=== PATIENT | male | born 1930 | race Caucasian/White ===

== ENCOUNTER 2017-04-11 05:45 | Inpatient (IN) | payer MEDICARE, OTHER ==
[2017-04-11] MEDS ORDERED: ASPIRIN 81 MG CHEW PO STA (05:49)
[2017-04-11] MEDS ORDERED: NITROGLYCERIN OINT 1 INCH/GM PACKET TOPICAL STA (05:49)
--- NOTE | 2017-04-11 05:54 | ED ---
General Adult HPI - General Stated complaint: Chest pain Time Seen by Provider: 04/11/17 05:45 Source: RN notes reviewed - History of Present Illness Initial comments: This is an 86-year-old male who presents to the emergency department with past medical history significant for coronary artery disease and stenting approximately 9 years ago. Patient also has a pacemaker. Patient states he woke up approximately one half hour ago with sharp right upper arm pain. Patient took 3 nitro sprays and the pain immediately relieved. Patient denies any chest pain difficulty breathing or shortness of breath. Patient denies any diaphoresis patient denies any abdominal pain patient denies nausea vomiting diarrhea. Patient denies being lightheaded dizzy. Patient denies any headache patient denies numbness weakness. Patient states he is currently asymptomatic. Patient denies any symptoms prior to going to bed last night. Patient denies being sick at all recently. Patient denies any recent fever chills or cough. - Related Data Home Medications Medication Instructions Recorded Confirmed ALPRAZolam [Xanax] 0.5 mg PO TID PRN 08/08/14 04/11/17 Tamsulosin HCl [Flomax] 0.4 mg PO DAILY 08/08/14 04/11/17 Atenolol [Tenormin] 25 mg PO DAILY 04/13/15 04/11/17 Pravastatin Sodium [Pravachol] 20 mg PO DAILY 04/13/15 04/11/17 Apixaban [Eliquis] 5 mg PO BID 07/23/16 04/11/17 Allergies Allergy/AdvReac Type Severity Reaction Status Date / Time Sulfa (Sulfonamide Allergy Unknown Verified 04/11/17 06:07 Antibiotics) Review of Systems ROS Statement: Those systems with pertinent positive or pertinent negative responses have been documented in the HPI. ROS Other: All systems not noted in ROS Statement are negative. Past Medical History Past Medical History: Coronary Artery Disease (CAD), Heart Failure, CVA/TIA, Hyperlipidemia, Hypertension, Musculoskeletal Disorder, Osteoarthritis (OA), Prostate Disorder Additional Past Medical History / Comment(s): BPH. TIA 08/2014. GOUT. 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 History of Any Multi-Drug Resistant Organisms: None Reported Past Surgical History: Heart Catheterization, Pacemaker Additional Past Surgical History / Comment(s): PTCA. [facility]. Past Anesthesia/Blood Transfusion Reactions: No Reported Reaction Type of Cardiac Device: Permanent Pacemaker Device Placement Date:: 2007 Past Psychological History: Anxiety, Panic Disorder Additional Psychological History / Comment(s): TAKES RX AT HS, OCC DURING DAY. Smoking Status: Never smoker Past Alcohol Use History: Occasional Past Drug Use History: None Reported - Past Family History Brother(s) Family Medical History: Cancer Additional Family Medical History / Comment(s): Clayton Delacruz General Exam - General Exam Comments Initial Comments: GENERAL: Patient is well-developed and well-nourished. Patient is nontoxic and well- hydrated and is in no acute distress. ENT: Neck is soft and supple. No significant lymphadenopathy is noted. Oropharynx is clear. Moist mucous membranes. Neck has full range of motion without eliciting any pain. EYES: The sclera were anicteric and conjunctiva were pink and moist. Extraocular movements were intact and pupils were equal round and reactive to light. Eyelids were unremarkable. PULMONARY: Unlabored respirations. Good breath sounds bilaterally. No audible rales rhonchi or wheezing was noted. CARDIOVASCULAR: There is a regular rate and rhythm without any murmurs gallops or rubs. Occasional extrasystole ABDOMEN: Soft and nontender with normal bowel sounds. No palpable organomegaly was noted. There is no palpable pulsatile mass. SKIN: Skin is clear with no lesions or rashes and otherwise unremarkable. NEUROLOGIC: Patient is alert and oriented x3. Cranial nerves II through XII are grossly intact. Motor and sensory are also intact. Normal speech, volume and content. Symmetrical smile. MUSCULOSKELETAL Patient's full range of motion of all 4 extremities LYMPHATICS: No significant lymphadenopathy is noted PSYCHIATRIC: Normal psychiatric evaluation. Normal interpersonal interactions appears functionally intact in deals appropriately with others. No signs of depression. No signs of anxiety. Course Vital Signs 04/11/17 05:55 Temperature 97 F L Pulse Rate 63 Respiratory 18 Rate Blood Pressure 130/77 O2 Sat by Pulse 97 Oximetry Medical Decision Making - Medical Decision Making EKG shows a paced rhythm at 73 bpm QRS is 192 QT interval is 496 QTC is QTC is 546. Patient's EKG does show occasional PVCs. Chest x-ray shows no acute normalities. Patient has unstable angina however patient does not need any anticoagulation because he does not have. I spoke to Dr. Kearney he accepted the patient I wrote admitting orders I consult to cardiology. - Lab Data Result diagrams: 04/11/17 05:50 04/11/17 05:50 Lab Results 04/11/17 04/11/17 04/11/17 Range/Units 05:50 05:50 05:50 WBC 5.3 (3.8-10.6) k/uL RBC 4.44 (4.30-5.90) m/uL Hgb 14.4 (13.0-17.5) gm/dL Hct 40.7 (39.0-53.0) % MCV 91.8 (80.0-100.0) fL MCH 32.5 (25.0-35.0) pg MCHC 35.4 (31.0-37.0) g/dL RDW 13.6 (11.5-15.5) % Plt Count 104 L (150-450) k/uL Neutrophils % 52 % Lymphocytes % 34 % Monocytes % 6 % Eosinophils % 5 % Basophils % 1 % Neutrophils # 2.8 (1.3-7.7) k/uL Lymphocytes # 1.8 (1.0-4.8) k/uL Monocytes # 0.3 (0-1.0) k/uL Eosinophils # 0.3 (0-0.7) k/uL Basophils # 0.0 (0-0.2) k/uL PT (9.0-12.0) sec INR (<1.1) APTT (22.0-30.0) sec Sodium 140 (137-145) mmol/L Potassium 4.2 (3.5-5.1) mmol/L Chloride 111 H (98-107) mmol/L Carbon Dioxide 21 L (22-30) mmol/L Anion Gap 8 mmol/L BUN 29 H (9-20) mg/dL Creatinine 1.10 (0.66-1.25) mg/dL Est GFR (MDRD) Af Amer >60 (>60 ml/min/1.73 sqM) Est GFR (MDRD) Non-Af >60 (>60 ml/min/1.73 sqM) Glucose 78 (74-99) mg/dL Calcium 7.8 L (8.4-10.2) mg/dL Magnesium 1.9 (1.6-2.3) mg/dL Total Bilirubin 1.0 (0.2-1.3) mg/dL AST 33 (17-59) U/L ALT 33 (21-72) U/L Alkaline Phosphatase 49 (38-126) U/L Total Creatine Kinase 58 (55-170) U/L CK-MB (CK-2) 1.5 (0.0-2.4) ng/mL CK-MB (CK-2) Rel Index 2.6 Troponin I 0.099 H* (0.000-0.034) ng/mL Total Protein 5.7 L (6.3-8.2) g/dL Albumin 3.1 L (3.5-5.0) g/dL 04/11/17 Range/Units 05:50 WBC (3.8-10.6) k/uL RBC (4.30-5.90) m/uL Hgb (13.0-17.5) gm/dL Hct (39.0-53.0) % MCV (80.0-100.0) fL MCH (25.0-35.0) pg MCHC (31.0-37.0) g/dL RDW (11.5-15.5) % Plt Count (150-450) k/uL Neutrophils % % Lymphocytes % % Monocytes % % Eosinophils % % Basophils % % Neutrophils # (1.3-7.7) k/uL Lymphocytes # (1.0-4.8) k/uL Monocytes # (0-1.0) k/uL Eosinophils # (0-0.7) k/uL Basophils # (0-0.2) k/uL PT 12.5 H (9.0-12.0) sec INR 1.3 (<1.1) APTT 24.8 (22.0-30.0) sec Sodium (137-145) mmol/L Potassium (3.5-5.1) mmol/L Chloride (98-107) mmol/L Carbon Dioxide (22-30) mmol/L Anion Gap mmol/L BUN (9-20) mg/dL Creatinine (0.66-1.25) mg/dL Est GFR (MDRD) Af Amer (>60 ml/min/1.73 sqM) Est GFR (MDRD) Non-Af (>60 ml/min/1.73 sqM) Glucose (74-99) mg/dL Calcium (8.4-10.2) mg/dL Magnesium (1.6-2.3) mg/dL Total Bilirubin (0.2-1.3) mg/dL AST (17-59) U/L ALT (21-72) U/L Alkaline Phosphatase (38-126) U/L Total Creatine Kinase (55-170) U/L CK-MB (CK-2) (0.0-2.4) ng/mL CK-MB (CK-2) Rel Index Troponin I (0.000-0.034) ng/mL Total Protein (6.3-8.2) g/dL Albumin (3.5-5.0) g/dL Disposition Clinical Impression: Unstable angina Disposition: ADMITTED IP TO THIS HOSP Referrals: James Herman DO [Primary Care Provider] - 1-2 days Time of Disposition: 06:57
[2017-04-11 06:11] LABS: Basophils % (A) 1 %; Eosinophils # (A) 0.3 k/uL (0-0.7); Eosinophils % (A) 5 %; HCT 40.7 % (39.0-53.0); HGB 14.4 gm/dL (13.0-17.5); Luc # (Auto) 0.13; Luc % (Auto) 3; Lymphocytes # (A) 1.8 k/uL (1.0-4.8); Lymphocytes % (A) 34 %; MCH 32.5 pg (25.0-35.0); MCHC 35.4 g/dL (31.0-37.0); MCV 91.8 fL (80.0-100.0); Mean Platelet Volume 8.8; Monocytes # (A) 0.3 k/uL (0-1.0); Monocytes % (A) 6 %; Neutrophils # (A) 2.8 k/uL (1.3-7.7); Neutrophils % (A) 52 %; RBC 4.44 m/uL (4.30-5.90); RDW 13.6 % (11.5-15.5); WBC 5.3 k/uL (3.8-10.6)
[2017-04-11 06:20] LABS: INR 1.3 (<1.1); Partial Thromboplastin Time 24.8 sec (22.0-30.0); Prothrombin Time 12.5 sec (9.0-12.0)
[2017-04-11 06:37] LABS: ALT 33 U/L (21-72); AST 33 U/L (17-59); Alkaline Phosphatase 49 U/L (38-126); Anion Gap 8 mmol/L; Blood Urea Nitrogen 29 mg/dL (9-20); Calcium 7.8 mg/dL (8.4-10.2); Carbon Dioxide 21 mmol/L (22-30); Chloride 111 mmol/L (98-107); Glucose 78 mg/dL (74-99); Magnesium 1.9 mg/dL (1.6-2.3); Non-African American GFR(MDRD) >60 (>60 ml/min/1.73 sqM); Potassium 4.2 mmol/L (3.5-5.1); Sodium 140 mmol/L (137-145); Total Protein 5.7 g/dL (6.3-8.2)
[2017-04-11 06:49] LABS: Creatine Kinase MB 1.5 ng/mL (0.0-2.4)
[2017-04-11 06:54] LABS: Troponin I 0.099 ng/mL (0.000-0.034)
--- NOTE | 2017-04-11 06:55 | XR ---
ADDENDUM - Added by Yosi Timmons M.D. on 04/11/2017 6:56 AM (-07:00) Correction: Bones/joints: Unremarkable except for multilevel spine degenerative changes. EXAM: XR Chest, 2 Views CLINICAL HISTORY: Reason: Chest Pain TECHNIQUE: Frontal and lateral views of the chest. COMPARISON: Chest radiography 08/08/14. FINDINGS: Lungs: Unremarkable. No consolidation. Pleural space: Unremarkable. No pneumothorax. Heart: Cardiomegaly. Mediastinum: Unremarkable. Bones/joints: Unremarkable. Vasculature: Atherosclerotic calcifications of the nonenlarged aortic arch. Mildly tortuous thoracic aorta. Tubes, lines and devices: Single lead pacer with intact wire. IMPRESSION: No acute cardiopulmonary disease.
[2017-04-11] MEDS ORDERED: NITROGLYCERIN SL TABS 0.4 MG TAB SUBLINGUAL PRN (06:57)
[2017-04-11] MEDS ORDERED: ALPRAZolam 0.5 MG TAB PO PRN (07:45)
[2017-04-11] MEDS ORDERED: APIXABAN 5 MG TAB PO SCH (09:00)
[2017-04-11] MEDS ORDERED: ENOXAPARIN 40 MG/0.4 ML SYRINGE SQ SCH (09:00)
[2017-04-11] MEDS ORDERED: PRAVASTATIN SODIUM 20 MG TAB PO SCH (09:00)
[2017-04-11 10:04] VITALS: BMI 25.8
[2017-04-11] MEDS: ATENOLOL 25 MG TAB PO SCH (10:07)
[2017-04-11] MEDS: TAMSULOSIN 0.4 MG CAP.ER.24H PO SCH (10:08)
[2017-04-11 12:22] LABS: Creatine Kinase MB 1.5 ng/mL (0.0-2.4)
[2017-04-11 12:27] LABS: Troponin I 0.11 ng/mL (0.000-0.034)
--- NOTE | 2017-04-11 17:28 | CONS ---
DATE OF CONSULTATION: Terry Browne is an 86-year-old elderly gentleman who is a patient of Dr. Ceci Almeida. He has history of CAD and about 15 to 18 years ago, according to the patient, he underwent a and PTCA. He did not have a stent placement. Since then he has done fairly well. He came into the hospital with an episode of what he describes as a chest discomfort. Apparently he woke up and had some pain in the left upper extremity and then had some pain in the right upper extremity. He took some nitro sprays and had some relief, felt concerned and came in. He has not had any recurrence of pain. He is resting comfortably in no diaphoresis. No nausea or vomiting. Initial troponin is mildly elevated. He is resting comfortably without symptoms. He also has a history of what seems to be paroxysmal atrial fibrillation, hypertension, and hypercholesterolemia. He takes Eliquis. He is status post permanent pacemaker for sick sinus syndrome and has underlying atrial fibrillation. At the time of my evaluation the patient is comfortable resting and denies any chest discomfort. PAST MEDICAL HISTORY: 1. CAD with previous history of angioplasty, details are unavailable. 2. History of sick sinus syndrome. 3. Paroxysmal atrial fibrillation, status post permanent pacemaker. 4. History of TIA in the past. 5. Hyperlipidemia. 6. Osteoarthritis. 7. Benign prostatic hypertrophy. Medications at home include: 1. Xanax p.r.n. 2. Flomax 0.4 mg daily. 3. Atenolol 25 mg daily. 4. Pravachol 20 mg daily. 5. Eliquis 5 mg b.i.d. ALLERGIES: SULFA. REVIEW OF SYSTEMS: Unremarkable other than above-mentioned facts. On examination, blood pressure is 118/70, pulse rate is 60 per minute, regular. HEENT: Unremarkable. Fundus was not examined by me. Neck is supple. There is JVD of 1 cm. No carotid bruit. Heart exam reveals S1, S2 with a short systolic murmur at the base. Lungs reveal diminished air entry. ABDOMEN: Soft, nontender. Lower extremities revealed diminished pulses. Central nervous system grossly within normal limits. EKG revealed a ventricular paced rhythm. LABORATORY DATA: Suggests that the initial troponin is 0.09 and subsequent one is 0.10. BUN and creatinine is normal, hemoglobin is normal. Platelet count is slightly low. IMPRESSION: 1. Chest pain syndrome, with troponin elevation suggestive of [id number] myocardial infarction. 2. History of paroxysmal atrial fibrillation with sick sinus syndrome and permanent pacemaker. 3. Hypertension. 4. Hyperlipidemia. RECOMMENDATIONS: I am recommending that we check an echocardiogram, hold Eliquis, check additional troponins and consider coronary angiography if his symptoms persist. I will speak to Dr. Ceci Almeida tomorrow. I discussed my thoughts in detail with the patient. Thank you very much for the consult.
[2017-04-11] MEDS: SODIUM CHLORIDE 0.9% 1,000 ML IV SCH (17:51)
[2017-04-11] MEDS: NITROGLYCERIN OINT 1 INCH/GM PACKET TOPICAL SCH ×2 (17:51→18:30)
[2017-04-11 18:26] LABS: Creatine Kinase MB 1.4 ng/mL (0.0-2.4)
[2017-04-11 18:28] LABS: Troponin I 0.086 ng/mL (0.000-0.034)
[2017-04-11] MEDS: PRAVASTATIN SODIUM 20 MG TAB PO SCH (20:40)
[2017-04-12] MEDS: NITROGLYCERIN OINT 1 INCH/GM PACKET TOPICAL SCH ×3 (00:15→13:25)
[2017-04-12] MEDS: SODIUM CHLORIDE 0.9% 1,000 ML IV SCH ×2 (05:08→15:23)
[2017-04-12 07:36] LABS: Anion Gap 8 mmol/L; Blood Urea Nitrogen 26 mg/dL (9-20); Calcium 8.1 mg/dL (8.4-10.2); Carbon Dioxide 25 mmol/L (22-30); Chloride 108 mmol/L (98-107); Cholesterol 121 mg/dL (<200); Glucose 79 mg/dL (74-99); HDL Cholesterol 29 mg/dL (40-60); Non-African American GFR(MDRD) 56 (>60 ml/min/1.73 sqM); Potassium 4.1 mmol/L (3.5-5.1); Sodium 141 mmol/L (137-145); Triglycerides 72 mg/dL (<150)
[2017-04-12 07:39] LABS: Basophils # (A) 0.1 k/uL (0-0.2); Basophils % (A) 1 %; CH 32.4; CHCM 33.1; Eosinophils # (A) 0.3 k/uL (0-0.7); Eosinophils % (A) 5 %; HCT 44.9 % (39.0-53.0); HDW 2.49; HGB 14.5 gm/dL (13.0-17.5); Luc # (Auto) 0.11; Luc % (Auto) 2; Lymphocytes % (A) 33 %; MCH 31.7 pg (25.0-35.0); MCHC 32.2 g/dL (31.0-37.0); Mean Platelet Volume 9.1; Monocytes # (A) 0.4 k/uL (0-1.0); Monocytes % (A) 6 %; Neutrophils # (A) 3.2 k/uL (1.3-7.7); Neutrophils % (A) 54 %; RBC 4.57 m/uL (4.30-5.90); WBC (Perox) 5.48
[2017-04-12 07:40] LABS: MCV 98.2 fL (80.0-100.0)
[2017-04-12] MEDS: TAMSULOSIN 0.4 MG CAP.ER.24H PO SCH (07:42)
[2017-04-12] MEDS: ATENOLOL 25 MG TAB PO SCH (07:42)
[2017-04-12] MEDS ORDERED: ASPIRIN 325 MG TAB PO SCH (09:00)
--- NOTE | 2017-04-12 09:06 | HP ---
DATE OF ADMISSION: 04/11/2017 PRESENTING COMPLAINT: Left arm pain. HISTORY OF PRESENTING COMPLAINT: A very pleasant 86-year-old patient of Dr. Herman. Known history of coronary artery disease with angioplasty plasty several years ago, congestive heart failure, hyperlipidemia, osteoarthritis, BPH, gout, has a pacemaker. Patient [place] son[place] and worked most of the day up and about. Woke up at 5:00 this morning with pain in his left arm. Nitroglycerin did help out. Because of nature of the pain just feeling really tired, did call EMS. EMS noted his heart rate to be down to 32. Patient was admitted with unstable angina. Patient was found to have troponin leak. Currently no chest pain. The patient was mildly short of breath. REVIEW OF SYSTEMS: CONSTITUTIONAL: Weak and tired. HEENT: None. RESPIRATORY: None. CARDIOVASCULAR: As above. GASTROINTESTINAL: None. GENITOURINARY: None. MUSCULOSKELETAL: Arthritic pain in the joints. DERMATOLOGICAL: None. HEMATOLOGIC: None. LYMPHATICS: None. PSYCHIATRY: None. NEUROLOGICAL: None. PAST MEDICAL HISTORY: Coronary artery with angioplasty, CHF, hypertension, osteoarthritis, BPH, gout, permanent pacemaker. PAST SURGICAL HISTORY: Coronary angioplasty, PTCA, permanent pacemaker. PAST PSYCHIATRIC HISTORY: Anxiety disorder. SOCIAL HISTORY: No smoking. The patient is a . Alcohol occasionally. FAMILY HISTORY: ( ) disease and cancer. HOME MEDICATIONS: 1. Flomax, 0.4 mg a day. 2. Pravachol 20 mg a day. 3. Tenormin 25 mg a day. 4. Eliquis 5 mg p.o. b.i.d. 5. Xanax 0.5 daily p.r.n. ALLERGIES TO SULFA. On examination, temperature 97, pulse 83, respirations 18, blood pressure 137/77, pulse ox 97% on 2 liters. GENERAL APPEARANCE: Average build, sitting up, not in distress. EYES: Pupils equal. Conjunctivae normal. HEENT: Oral cavity normal. NECK: JVD not raised. Mass not palpable. RESPIRATORY: Effort normal. Lungs are clear. CARDIOVASCULAR: First and second sounds normal. No edema. ABDOMEN: Soft, nontender. Liver and spleen not palpable. LYMPHATIC: No lymph node palpable in neck or axillae. PSYCHIATRIC: Alert and oriented x3. Mood and affect normal. NEUROLOGICAL: Pupils equal. Cranial nerves grossly intact. Power and sensation grossly intact. MUSCULOSKELETAL: Evidence of osteoarthritis especially on hands and knees. INVESTIGATIONS: White count 5, hemoglobin 14.4. Potassium 4.2. BUN 29, creatinine 1.10. Troponin 0.099, 0.110. EKG shows paced rhythm. ASSESSMENT: 1. Unstable angina in a patient with known coronary artery disease, who had exerted himself and troponins are actually climbing. This may well be acute non-Q-wave myocardial infarction in a patient with known coronary artery disease. 2. Chronic congestive heart failure, ejection fraction not known. 3. Primary osteoarthritis of multiple joints, bilateral. 4. Persistent atrial flutter fibrillation, currently has a pacemaker. 5. Benign prostatic hypertrophy. PLAN: Serial cardiac enzymes are in place. Home medications are resumed. Patient was put on nitro paste and also on aspirin. Cardiology is consulted. Patient probably needs a cardiac catheterization. Will defer the final diagnosis to them. Care was discussed with the patient and family at the bedside.
--- NOTE | 2017-04-12 10:28 | ECHOF ---
Referral Reason:physician order MEASUREMENTS -------- HEIGHT: 182.9 cm WEIGHT: 84.8 kg BP: 137/75 IVSd: 1.2 cm (0.6 - 1.1) LVIDd: 4.3 cm (3.9 - 5.3) LVPWd: 1.3 cm (0.6 - 1.1) IVSs: 1.8 cm LVIDs: 3.2 cm LVPWs: 1.1 cm Ao Diam: 3.9 cm (2.0 - 3.7) AV Cusp: 1.9 cm (1.5 - 2.6) LA Diam: 4.0 cm (2.7 - 3.8) MV EXCURSION: 17.701 mm (> 18.000) MV EF SLOPE: 83 mm/s (70 - 150) EPSS: 1.1 cm MV E Eduardo: 0.76 m/s MV DecT: 224 ms MV A Eduardo: 0.46 m/s MV E/A Ratio: 1.64 RAP: 5.00 mmHg RVSP: 8.33 mmHg FINDINGS -------- Sinus rhythm. This was a technically difficult study with suboptimal views. There is mild concentric left ventricular hypertrophy. Overall left ventricular systolic function is mildly impaired with, an EF between 45 - 50 %. Septal wall motion is delayed, and consistent with conduction delay/bundle branch block. The RV was not well visualized. The left atrium is mildly dilated. The right atrium was not well visualized. 1.5mg of Definity was utilized for enhancement of images The aortic valve is trileaflet and appears structurally normal. Mild mitral regurgitation is present. Mild tricuspid regurgitation present. The right ventricular systolic pressure, as measured by Doppler, is 8.33mmHg. The pulmonic valve was not well visualized. The aortic root size is normal. The pericardium is normal. CONCLUSIONS -------- 1. Sinus rhythm. 2. Mild mitral regurgitation is present. 3. Mild tricuspid regurgitation present. 4. The right ventricular systolic pressure, as measured by Doppler, is 8.33mmHg. 5. The pulmonic valve was not well visualized. 6. The aortic root size is normal. 7. The pericardium is normal. 8. This was a technically difficult study with suboptimal views. 9. There is mild concentric left ventricular hypertrophy. 10. Septal wall motion is delayed, and consistent with conduction delay/bundle branch block. 11. The RV was not well visualized. 12. The left atrium is mildly dilated. 13. The right atrium was not well visualized. 14. 1.5mg of Definity was utilized for enhancement of images 15. The aortic valve is trileaflet and appears structurally normal. [employer]ETING PROCESSOR: Lola Vincent RDCS
--- NOTE | 2017-04-12 13:42 | P.PN ---
Subjective Principal diagnosis: Chest pain This is an 86-year-old gentleman who follows regularly with Dr. Samson in the office. He has a known history of coronary artery disease with prior PTCA, paroxysmal atrial fibrillation, prior pacemaker implantation, prior TIA, hyperlipidemia, hypertension, patient presented to the hospital with symptoms of chest discomfort, ruled in for non-Q-wave myocardial infarction. He was on Eliquis for anticoagulation, his last dose was yesterday morning. Patient will be scheduled to undergo cardiac catheterization tomorrow by Dr. Samson, the risks and the benefits were explained to the patient in detail and he is willing to proceed. Echocardiogram with Doppler study was performed which revealed an ejection fraction of 45-50%. At the time of our examination today, patient denies any chest pain, he was concerned that he was told recently that his pacemaker was at [facility], we'll check with the office in this regard. Objective - Vital Signs Vital signs: Vital Signs Temp 96.1 F L 04/12/17 07:37 Pulse 63 04/12/17 11:11 Resp 18 04/12/17 04:00 BP 137/69 04/12/17 11:11 Pulse Ox 97 04/12/17 11:11 Intake & Output 04/11/17 04/12/17 04/12/17 18:59 06:59 18:59 Intake Total 845 900 200 Output Total 950 Balance -105 900 200 Weight 84 kg 85.1 kg Intake: IV 900 Sodium Chloride 0.9% 1, 900 000 ml @ 75 mls/hr IV . [id number] RON[facility]DO Rx#:[id number] Intake, IV Titration 125 Amount Sodium Chloride 0.9% 1, 125 000 ml @ 75 mls/hr IV . [id number] RON[facility]DO Rx#:[id number] Oral 720 200 Output: Urine 950 Other: Voiding Method Urinal Urinal # Voids 1 0 # Bowel Movements 0 1 - Exam PHYSICAL EXAMINATION: HEENT: Head is atraumatic, normocephalic. Pupils equal, round. Neck is supple. There is no elevated jugular venous pressure. HEART EXAMINATION: Heart S1 and S2 systolic murmur is heard. CHEST EXAMINATION: Lungs are clear to auscultation and precussion. No chest wall tenderness is noted on palpation or with deep breathing. ABDOMEN: Soft, nontender. Bowel sounds are heard. No organomegaly noted. EXTREMITIES: 2+ peripheral pulses with no evidence of peripheral edema and no calf tenderness noted. NEUROLOGIC patient is awake, alert and oriented -3. . - Labs CBC & Chem 7: 04/12/17 05:40 04/12/17 05:40 Labs: Abnormal Lab Results - Last 24 Hours (Table) 04/11/17 04/12/17 04/12/17 Range/Units 17:45 05:40 05:40 Plt Count 114 L (150-450) k/uL Chloride 108 H (98-107) mmol/L BUN 26 H (9-20) mg/dL Calcium 8.1 L (8.4-10.2) mg/dL Total Creatine Kinase 46 L (55-170) U/L Troponin I 0.086 H* (0.000-0.034) ng/mL HDL Cholesterol 29 L (40-60) mg/dL 04/12/17 Range/Units 05:40 Plt Count (150-450) k/uL Chloride (98-107) mmol/L BUN (9-20) mg/dL Calcium (8.4-10.2) mg/dL Total Creatine Kinase (55-170) U/L Troponin I 0.117 H* (0.000-0.034) ng/mL HDL Cholesterol (40-60) mg/dL Assessment and Plan (1) ACS (acute coronary syndrome) Status: Acute (2) Pacemaker Status: Acute (3) Paroxysmal a-fib Status: Acute (4) TIA (transient ischemic attack) Status: Acute (5) HTN (hypertension) Status: Acute (6) Hyperlipemia Status: Acute Plan: From cardiology's perspective, we will continue to hold the Eliquis. Patient will be scheduled to undergo cardiac catheterization tomorrow by Dr. Samson. The risks and the benefits were explained to the patient in detail and he is willing to proceed. We will also check with the office regarding the patient's pacemaker life status. DNP note has been reviewed, I agree with a documented findings and plan of care. Patient was seen and examined.
--- NOTE | 2017-04-12 17:14 | PN ---
DATE OF SERVICE: 04/12/2017 PRESENTING COMPLAINT: Left arm pain. INTERVAL HISTORY: This patient with known coronary artery disease with prior angioplasty presented with left arm pain after exerting himself trying to cut down a tree. Troponin leak was present. Feeling a bit tired. Seen by Dr. Arnold earlier today for a cardiac catheterization tomorrow. Family is at the bedside. He has been up to the bathroom. Review of systems done for constitutional, cardiovascular, GI, pulmonary; relevant findings as above. Current medications are reviewed. On examination, temperature 96.1, pulse 58, respiration 16, blood pressure 137/69, pulse ox 97% on room air. GENERAL APPEARANCE: Sitting up, comfortable. EYES: Pupils equal. Conjunctivae normal. NECK: JVD not raised. Mass not palpable. RESPIRATORY: Effort normal. Lungs are clear. CARDIOVASCULAR: First and second sounds normal. No edema. ABDOMEN: Soft, nontender. Liver and spleen not palpable. PSYCHIATRY: Alert and oriented x3. Mood and affect normal. INVESTIGATIONS: White count 6.0, hemoglobin 14.5. Potassium 4.1. BUN 26, creatinine 1.23. Troponin noted. LDL 78. ASSESSMENT: 1. Unstable angina in a patient with known coronary artery disease with troponin leak with prior angioplasty suggestive of acute non-Q-wave myocardial infarction. 2. Chronic congestive heart failure; ejection fraction not known. 3. Primary osteoarthritis of multiple joints, bilateral. 4. Persistent atrial flutter/fibrillation; has a pacemaker. 5. Benign prostatic hypertrophy. PLAN: Patient's Eliquis has been held. Patient is awaiting cardiac catheterization. Other medication and treatment plan is to continue. Care was discussed with the patient.
[2017-04-12] MEDS: PRAVASTATIN SODIUM 20 MG TAB PO SCH (21:36)
[2017-04-13 03:13] VITALS: RESP 18
[2017-04-13] MEDS: TAMSULOSIN 0.4 MG CAP.ER.24H PO SCH (06:52)
[2017-04-13] MEDS: ASPIRIN 81 MG CHEW PO SCH (06:52)
[2017-04-13] MEDS: ATENOLOL 25 MG TAB PO SCH (06:52)
[2017-04-13] MEDS ORDERED: LIDOCAINE 2% INJ 20 MG/ML (20 ML MDV) ONE (08:48)
[2017-04-13] MEDS ORDERED: fentaNYL (PF) 50 MCG/ML 2 ML AMP ONE (08:59)
[2017-04-13] MEDS ORDERED: diphenhydrAMINE 50 MG/ML 1 ML VIAL ONE (08:59)
[2017-04-13] MEDS ORDERED: diphenhydrAMINE 50 MG/ML 1 ML VIAL IVP ONE (09:00)
[2017-04-13] MEDS ORDERED: fentaNYL (PF) 50 MCG/ML 2 ML AMP IV ONE (09:00)
[2017-04-13] MEDS ORDERED: LIDOCAINE 2% INJ 20 MG/ML SQ ONE (09:05)
[2017-04-13] MEDS ORDERED: IV FLUID CONTINUATION 900 ML IV ONE (09:11)
[2017-04-13] MEDS ORDERED: amLODIPine 5 MG TAB ONE ×2 (09:16)
[2017-04-13] MEDS ORDERED: amLODIPine 5 MG TAB PO ONE (09:18)
[2017-04-13] MEDS ORDERED: LABETALOL SYRINGE 5 MG/ML IV ONE (09:25)
[2017-04-13] MEDS ORDERED: IOHEXOL 350 MG/ML 125ML BOTTLE INJ ONE (09:33)
[2017-04-13] MEDS ORDERED: RX INFO: IV CONTRAST WAS GIVEN 1 EACH MISC MISCELLANE PRN (09:38)
--- NOTE | 2017-04-13 11:31 | CC ---
DATE OF SERVICE: Patient admitted to the hospital with some chest pain. Patient had atrial fibrillation on anticoagulation with Eliquis and status post pacemaker. History of angio post stent, angioplasty of the right coronary done 18 years ago. Admitted with mild troponin leaks but creatinine is also up more than 1.3, 1.4 range. These troponin leaks were borderline range. Advised cardiac catheterization for definitive diagnosis. Patient's cath # being [id number]. Patient underwent cardiac catheterization and procedure under local anesthesia, after cannulating the right femoral artery, with right and left selective coronary arteriograms followed by end diastolic pressure measurements without any left ventriculogram. The patient tolerated the procedure very well. Patient under sedation for about 45 minutes. Conscious sedation. Patient tolerated the procedure: Patient had an Angio-Seal applied following the procedure. Hemodynamic cath # being [id number]. HEMODYNAMIC DATA: Aortic pressure noted to be 186/83 with a mean pressure of 133. Patient did received 10 mg of Norvasc and also 25 mg of labetalol which dropped the blood pressures, end-diastolic pressure following coronary arteriography noted to be 18 mmHg. There was no gradient across the aortic valve. Patient's creatinine is elevated, so did not do the left ventriculogram. SELECTIVE CORONARY ARTERIOGRAPHY: The left ( ) is a long left ( ) and noted to have distal ulcer next to the LAD, not involving the LAD itself. LAD has mild irregularities, not exceeding 20% and circumflex is also nondominant, moderate caliber ( ) lesions. RIGHT CORONARY: The right coronary is ( ) with mild irregularities not exceeding 20% - 30%. No critical lesion is noted other than the distal left main ulceration, not involving the LAD of the circumflex. RECOMMENDATIONS: Continue medical therapy, risk factor modification.
[2017-04-13] MEDS: SODIUM CHLORIDE 0.9% 1,000 ML IV SCH (12:19)
--- NOTE | 2017-04-13 18:41 | P.PN ---
Progress Note - Text DATE OF SERVICE: 04/13/2017 PRESENTING COMPLAINT: Left arm pain INTERVAL HISTORY: Patient presented with unstable angina, is now status post cardiac catheterization. Patient lying flat in the bed appears comfortable, a little bit sleepy. REVIEW OF SYSTEMS: Done for constitutional ,cardiovascular, GI, pulmonary with relevant findings as above. CURRENT MEDICATIONS Eliquis, atenolol, Pravachol, aspirin. PHYSICAL EXAM: VITAL SIGNS: Temperature 98.4, pulse 65, respirations 18, blood pressure 130/66 , oxygen saturation 97 % on room air GENERAL APPEARANCE: Lying in bed, not in distress. EYES: Pupils equal. Conjunctiva normal. NECK: JVD not raised. Mass not palpable. RESPIRATORY: Respiratory effort normal. Lungs clear to auscultation. CARDIOVASCULAR: First and second sounds normal. No edema. ABDOMEN: Soft. Liver and spleen not palpable. No tenderness. No mass palpable. PSYCHIATRY: Alert and oriented x3. Mood and affect normal. INTEGUMENT: Right groin site with surgical dressing in place no bleeding or hematoma noted. INVESTIGATIONS: Cardiac catheterization: Left main noted to have distal ulcer LAD not involving the LAD itself. LAD has mild irregularities not more than 20%. Right coronary artery: Mild irregularities not exceeding 20-30% no critical lesions, other than distal left main ulceration not involving LAD of the circumflex Echocardiogram: Sinus rhythm, mild mitral and tricuspid regurgitation, EF between 45 and 50%. ASSESSMENT: 1. Angina patient with known coronary artery disease, with troponin leak with prior angioplasty suggestive of acute non-Q wave myocardial infarction. 2. Chronic congestive heart failure, ejection fraction 45-50%. 3. Primary osteoarthritis of multiple joints, bilateral 4. Persistent atrial flutter/fibrillation, has pacemaker. 5. Benign prostatic hypertrophy. PLAN: Cardiac catheterization negative for any lesions. No further episodes chest/ arm pain. Eliquis to be restarted tomorrow. Cardiology to optimize medications. We'll continue to follow closely NNP statement: Patient was seen and examined by nurse practitioner Rebecca Funk in all elements of the case discussed with attending is Dr. Kearney
[2017-04-13] MEDS: PRAVASTATIN SODIUM 20 MG TAB PO SCH (20:40)
[2017-04-14] MEDS: SODIUM CHLORIDE 0.9% 1,000 ML IV SCH ×2 (01:51→05:54)
[2017-04-14 06:15] LABS: Basophils % (A) 1 %; CH 32.3; CHCM 33.6; Eosinophils # (A) 0.3 k/uL (0-0.7); Eosinophils % (A) 5 %; HCT 44.7 % (39.0-53.0); HDW 2.53; HGB 14.6 gm/dL (13.0-17.5); Luc # (Auto) 0.11; Luc % (Auto) 2; Lymphocytes # (A) 1.8 k/uL (1.0-4.8); Lymphocytes % (A) 31 %; MCH 31.5 pg (25.0-35.0); MCHC 32.5 g/dL (31.0-37.0); MCV 96.8 fL (80.0-100.0); Mean Platelet Volume 9.2; Monocytes # (A) 0.4 k/uL (0-1.0); Monocytes % (A) 6 %; Neutrophils # (A) 3.1 k/uL (1.3-7.7); Neutrophils % (A) 55 %; RBC 4.62 m/uL (4.30-5.90); WBC 5.6 k/uL (3.8-10.6); WBC (Perox) 5.68
[2017-04-14 06:36] LABS: Anion Gap 10 mmol/L; Blood Urea Nitrogen 24 mg/dL (9-20); Calcium 8.6 mg/dL (8.4-10.2); Carbon Dioxide 23 mmol/L (22-30); Chloride 108 mmol/L (98-107); Glucose 80 mg/dL (74-99); Non-African American GFR(MDRD) 51 (>60 ml/min/1.73 sqM); Potassium 3.9 mmol/L (3.5-5.1); Sodium 141 mmol/L (137-145)
--- NOTE | 2017-04-14 07:54 | PN ---
DATE OF SERVICE: 04/13/2017 Attending Note: This patient was seen and examined by me earlier today. Patient is status post cardiac catheterization by Dr. Ceci Almeida and he was recommended medical management. No further chest pain. On examination, lungs are clear. CARDIOVASCULAR: First and second sounds normal. ASSESSMENT: 1. Unstable angina in a patient with known coronary artery disease, status post angioplasty. 2. Chronic congestive heart failure from systolic dysfunction; ejection fraction 45 to 50%. PLAN: Continue medication and treatment plan. Encouraged to be out of bed. Follow with cardiology.
[2017-04-14] MEDS: TAMSULOSIN 0.4 MG CAP.ER.24H PO SCH (08:04)
[2017-04-14] MEDS: ATENOLOL 25 MG TAB PO SCH (08:05)
[2017-04-14] MEDS: ASPIRIN 81 MG CHEW PO SCH (08:05)
[2017-04-14 14:07] VITALS: BP 142/68; PULSE 52; TEMP 97
--- NOTE | 2017-04-14 14:11 | P.PN ---
Subjective Principal diagnosis: chest pain This is a pleasant 86 year gentleman who follows regularly with Dr. Samson in the office. He is a known history of coronary artery disease with prior PTCA, paroxysmal atrial fibrillation, prior pacemaker implantation, prior TIA, hyperlipidemia, hypertension, patient presented to the hospital with symptoms of chest discomfort, ruled in for a non-ST elevated LA. Patient underwent cardiac catheterization by Dr. Samson yesterday. A catheterization showed no critical lesion other than distal left main ulceration, LAD with mild irregularities not exceeding 20% and RCA with mild irregularities not exceeding 20-30%. Continuing medical management and risk factor modification was recommended to the patient. Patient was seen and examined this morning and is feeling well. Denies complaints of chest discomfort, shortness of breath, dizziness, syncope or edema. Objective - Vital Signs Vital signs: Vital Signs Temp 97.1 F L 04/14/17 08:00 Pulse 87 04/14/17 09:07 Resp 18 04/14/17 08:00 BP 160/82 04/14/17 09:07 Pulse Ox 97 04/14/17 09:07 Intake & Output 04/13/17 04/14/17 04/14/17 18:59 06:59 18:59 Intake Total 1130 250 480 Output Total 800 300 Balance 330 -50 480 Weight 83.6 kg Intake: IV 950 250 Sodium Chloride 0.9% 1, 900 250 000 ml @ 75 mls/hr IV . [id number] [facility] Rx#:[id number] Oral 180 480 Output: Urine 800 300 Other: Voiding Method Toilet Toilet Toilet # Voids 1 1 1 # Bowel Movements 1 - Exam PHYSICAL EXAMINATION: HEENT: Head is atraumatic, normocephalic. Pupils equal, round. Neck is supple. There is no elevated jugular venous pressure. HEART EXAMINATION: Heart sounds irregularly irregular, S1 and S2 with a systolic murmur. CHEST EXAMINATION: Lungs are clear to auscultation and precussion. No chest wall tenderness is noted on palpation or with deep breathing. ABDOMEN: Soft, nontender. Bowel sounds are heard. No organomegaly noted. EXTREMITIES: 2+ peripheral pulses with no evidence of peripheral edema and no calf tenderness noted. NEUROLOGIC patient is awake, alert and oriented x3. . - Labs CBC & Chem 7: 04/14/17 05:51 04/14/17 05:51 Labs: Abnormal Lab Results - Last 24 Hours (Table) 04/14/17 04/14/17 Range/Units 05:51 05:51 Plt Count 98 L (150-450) k/uL Chloride 108 H (98-107) mmol/L BUN 24 H (9-20) mg/dL Creatinine 1.33 H (0.66-1.25) mg/dL Assessment and Plan Plan: Assessment and plan #1 acute coronary syndrome, cath showed no hemodynamically significant lesions. #2 paroxysmal atrial fibrillation #3 sick sinus syndrome, status post pacemaker #4 hypertension #5 hyperlipidemia #6 TIA From Cardiology's perspective, resume anticoagulation. Patient's pacemaker is nearing SALLY this is being monitored at the device clinic. Patient from our standpoint is stable for discharge home. Follow up in the office with Dr. Samson and the device clinic in one week. TESTING AND REGULATING CHIEF note has been reviewed, I agree with a documented findings and plan of care. Patient was seen and examined.
--- NOTE | 2017-04-14 19:26 | P.DS ---
Providers Date of admission: 04/11/17 06:57 Expected date of discharge: 04/14/17 Attending physician: Marcello Kearney Consults: 04/11/17 06:57 Consult Physician Urgent Consulting Provider: [facility] Consult Reason/Comments: Unstable angina Do you want consulting provider notified?: Yes Primary care physician: [facility] Course: FINAL DIAGNOSES: 1. Angina patient with known coronary artery disease, with troponin leak with prior angioplasty suggestive of acute non-Q wave myocardial infarction. 2. Chronic congestive heart failure,systolic dysfunction ejection fraction 45- 50%. 3. Primary osteoarthritis of multiple joints, bilateral 4. Persistent atrial flutter/fibrillation, has pacemaker. 5. Benign prostatic hypertrophy. HOSPTIAL COURSE: This is an 86-year-old male who presented with unstable angina.. Cardiology consulted, patient taken for cardiac catheterization, found to have normal coronary arteries. Ejection fraction as listed above. Today patient is lying in bed comfortable, tolerating his diet, ambulatory in the hallway and room, feels good. No further symptoms of cardiac problems. Patient is stable for discharge. PHYSICAL EXAM: CARDIOVASCULAR: First and second sounds noted no edema RESPIRATORY: Respiratory effort normal lungs clear to auscultation bilaterally OVERCOILER statement: Patient t was seen and examined by nurse practitioner Rebecca Funk in all elements of the case discussed with attending Dr. Kearney DISPSITION: Home to the care of his family. Procedures: Cardiac catheterization Left main is noted to have a distal ulcer next to the LAD not involving the LAD itself, mild irregularities not exceeding 20% in the circumflex is nondominant with moderate caliber lesions. Right coronary is noted to have mild irregularities not exceeding 20-30%. No critical lesions other than the distal left main ulceration not involving the LAD and circumflex. Patient Condition at Discharge: Stable Plan - Discharge Summary New Discharge Prescriptions: New Aspirin 81 mg PO DAILY Nitroglycerin Sl Tabs [Nitrostat] 0.4 mg SUBLINGUAL Q5M PRN #20 tab PRN Reason: Chest Pain Lisinopril [Prinivil] 5 mg PO DAILY #30 tablet Continue ALPRAZolam [Xanax] 0.5 mg PO TID PRN PRN Reason: Anxiety Tamsulosin HCl [Flomax] 0.4 mg PO DAILY Pravastatin Sodium [Pravachol] 20 mg PO DAILY Atenolol [Tenormin] 25 mg PO DAILY Apixaban [Eliquis] 5 mg PO BID Discharge Medication List ALPRAZolam [Xanax] 0.5 mg PO TID PRN 08/08/14 [History] Tamsulosin HCl [Flomax] 0.4 mg PO DAILY 08/08/14 [History] Atenolol [Tenormin] 25 mg PO DAILY 04/13/15 [History] Pravastatin Sodium [Pravachol] 20 mg PO DAILY 04/13/15 [History] Apixaban [Eliquis] 5 mg PO BID 07/23/16 [History] Aspirin 81 mg PO DAILY 04/14/17 [Rx] Lisinopril [Prinivil] 5 mg PO DAILY #30 tablet 04/14/17 [Rx] Nitroglycerin Sl Tabs [Nitrostat] 0.4 mg SUBLINGUAL Q5M PRN #20 tab 04/14/17 [Rx ] Follow up Appointment(s)/Referral(s): aCrlene Arnold MD [STAFF PHYSICIAN] - 1 Week (OFFICE TO CALL YOU APPOINTMENT.) James Herman DO [Primary Care Provider] - 04/16/17 2:45 pm Ambulatory/Diagnostic Orders: Basic Metabolic Panel [LAB.AMB] Location: Determined By Patient Patient Instructions/Handouts: *Surgery [facility] - After Heart Catheterization - Bar Catcher Instructions Discharge Disposition: HOME SELF-CARE
--- NOTE | 2017-04-15 07:35 | DS ---
DATE OF ADMISSION: 04/11/2017 DATE OF DISCHARGE: 04/14/2017 ADDENDUM: Discharge planning more than 35 minutes.
--- NOTE | 2017-04-15 07:35 | DS ---
DATE OF ADMISSION: 04/11/2017 DATE OF DISCHARGE: 04/14/2017 ATTENDING NOTE: This patient was seen and examined by me earlier today. I reviewed the discharge summary of my nurse practitioner, Ms. Funk. I reviewed discussed additional findings below. Patient admitted with chest pain with some troponin leak. A 2-D echo showed EF of 45% to 50%. Cardiac catheterization showed minimal disease. Patient has a pacemaker with underlying atrial flutter fibrillation. Doing much better at the time of discharge as only medical management was suggested. Seen by Dr. Arnold from cardiology. ON EXAMINATION: CARDIOVASCULAR: Heart sounds irregular. Lungs are clear. DISPOSITION: Home. More details in my REGULATION SUPERVISOR note.
== END 2017-04-14 17:02 | disposition home or self-care (01) | DRG 281 ==
LOC: EC 05:45 → 6SEL 06:57
PROVIDERS: ADMIT Hospitalist; ATTEND Hospitalist
PROC: B2111ZZ Fluoroscopy of Multiple Coronary Arteries using Low Osmolar Contrast (ICD-10-PCS; 2017-04-13)
PROC: 4A023N7 Measurement of Cardiac Sampling and Pressure, Left Heart, Percutaneous Approach (ICD-10-PCS; principal; 2017-04-13 08:38)
DX: I21.4 Non-ST elevation (NSTEMI) myocardial infarction (principal); I50.22 Chronic systolic (congestive) heart failure; I11.0 Hypertensive heart disease with heart failure; I48.1 Persistent atrial fibrillation; I48.92 Unspecified atrial flutter; I25.110 Atherosclerotic heart disease of native coronary artery with unstable angina pectoris; I49.5 Sick sinus syndrome; E78.5 Hyperlipidemia, unspecified; I48.0 Paroxysmal atrial fibrillation; I24.9 Acute ischemic heart disease, unspecified; I36.1 Nonrheumatic tricuspid (valve) insufficiency; I34.0 Nonrheumatic mitral (valve) insufficiency; I49.3 Ventricular premature depolarization; M10.9 Gout, unspecified; F41.9 Anxiety disorder, unspecified; N40.0 Benign prostatic hyperplasia without lower urinary tract symptoms; M17.10 Unilateral primary osteoarthritis, unspecified knee; M19.049 Primary osteoarthritis, unspecified hand; R53.1 Weakness; E78.00 Pure hypercholesterolemia, unspecified; F41.0 Panic disorder [episodic paroxysmal anxiety]; Z86.73 Personal history of transient ischemic attack (TIA), and cerebral infarction without residual deficits; Z88.2 Allergy status to sulfonamides; Z95.0 Presence of cardiac pacemaker; Z79.899 Other long term (current) drug therapy; Z79.01 Long term (current) use of anticoagulants; Z95.5 Presence of coronary angioplasty implant and graft; Z80.9 Family history of malignant neoplasm, unspecified; Z87.891 Personal history of nicotine dependence
CPT/HCPCS: 36415; 71020; 80048; 80053; 80061; 82550; 82553; 83721; 83735; 84484; 85025; 85610; 85730; 93005; 93306; 93458; 94760; 96361; 96374; 99285

== ENCOUNTER 2017-08-17 00:09 | Inpatient (IN) | payer MEDICARE, OTHER ==
[2017-08-17] MEDS ORDERED: IBUPROFEN 600 MG TAB PO STA (00:17)
[2017-08-17] MEDS ORDERED: ACETAMINOPHEN TAB 500 MG TAB PO STA (00:17)
--- NOTE | 2017-08-17 00:20 | ED ---
General Adult HPI - General Stated complaint: weakness Time Seen by Provider: 08/17/17 00:10 Source: RN notes reviewed - History of Present Illness Initial comments: This is an 86-year-old male who presents emergency Department stating this morning he woke up and he was shaking but he didn't know why. Patient states after that he became extremely tired and at one point he kind of collapsed slowly to the ground but was unable to get up which she states is very unusual. Patient states she's also had a cough but no sputum production. Patient denies any shortness of breath or difficulty breathing. Patient denies any chest pain or palpitations. Patient denies any abdominal pain patient denies nausea vomiting diarrhea. Patient denies any dysuria hematuria urinary frequency. Patient denies being lightheaded or dizzy. Patient denies any near syncopal episode. Patient denies headache patient denies numbness weakness. Any injury with the fall. - Related Data Home Medications Medication Instructions Recorded Confirmed ALPRAZolam [Xanax] 0.5 mg PO TID PRN 08/08/14 04/11/17 Tamsulosin HCl [Flomax] 0.4 mg PO DAILY 08/08/14 04/11/17 Atenolol [Tenormin] 25 mg PO DAILY 04/13/15 04/11/17 Pravastatin Sodium [Pravachol] 20 mg PO DAILY 04/13/15 04/11/17 Apixaban [Eliquis] 5 mg PO BID 07/23/16 04/11/17 Previous Rx's Medication Instructions Recorded Aspirin 81 mg PO DAILY 04/14/17 Lisinopril [Prinivil] 5 mg PO DAILY #30 tablet 04/14/17 Nitroglycerin Sl Tabs [Nitrostat] 0.4 mg SUBLINGUAL Q5M PRN #20 tab 04/14/17 Allergies Allergy/AdvReac Type Severity Reaction Status Date / Time Sulfa (Sulfonamide Allergy Unknown Verified 08/17/17 00:29 Antibiotics) Review of Systems ROS Statement: Those systems with pertinent positive or pertinent negative responses have been documented in the HPI. ROS Other: All systems not noted in ROS Statement are negative. Past Medical History Past Medical History: Atrial Fibrillation, Atrial Flutter, Coronary Artery Disease (CAD), Heart Failure, CVA/TIA, Hyperlipidemia, Hypertension, Musculoskeletal Disorder, Osteoarthritis (OA), Prostate Disorder Additional Past Medical History / Comment(s): BPH. TIA 08/2014. GOUT. 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 History of Any Multi-Drug Resistant Organisms: None Reported Past Surgical History: Heart Catheterization, Pacemaker Additional Past Surgical History / Comment(s): PTCA. [facility]. Past Anesthesia/Blood Transfusion Reactions: No Reported Reaction Type of Cardiac Device: Permanent Pacemaker Device Placement Date:: 2007 Past Psychological History: Anxiety, Panic Disorder Additional Psychological History / Comment(s): TAKES RX AT HS, OCC DURING DAY. Smoking Status: Never smoker Past Alcohol Use History: Occasional Past Drug Use History: None Reported - Past Family History Brother(s) Family Medical History: Cancer Additional Family Medical History / Comment(s): Creutzfeldt Jayme General Exam - General Exam Comments Initial Comments: GENERAL: Patient is well-developed and well-nourished. Patient is nontoxic and well- hydrated and is in mild distress. I took the patient's temperature in the 102.9 fever ENT: Neck is soft and supple. No significant lymphadenopathy is noted. Oropharynx is clear. Moist mucous membranes. Neck has full range of motion without eliciting any pain. EYES: The sclera were anicteric and conjunctiva were pink and moist. Extraocular movements were intact and pupils were equal round and reactive to light. Eyelids were unremarkable. PULMONARY: Unlabored respirations. Good breath sounds bilaterally. No audible rales rhonchi or wheezing was noted. CARDIOVASCULAR: There is a regular rate and rhythm without any murmurs gallops or rubs. ABDOMEN: Soft and nontender with normal bowel sounds. No palpable organomegaly was noted. There is no palpable pulsatile mass. SKIN: Skin is clear with no lesions or rashes and otherwise unremarkable. NEUROLOGIC: Patient is alert and oriented x3. Cranial nerves II through XII are grossly intact. Motor and sensory are also intact. Normal speech, volume and content. Symmetrical smile. MUSCULOSKELETAL: Normal extremities with adequate strength and full range of motion. No lower extremity swelling or edema. No calf tenderness. LYMPHATICS: No significant lymphadenopathy is noted PSYCHIATRIC: Normal psychiatric evaluation. Normal interpersonal interactions appears functionally intact in deals appropriately with others. No signs of depression. No signs of anxiety. Course Vital Signs 08/17/17 08/17/17 00:15 01:19 Temperature 102.9 F H Pulse Rate 99 84 Respiratory 20 18 Rate Blood Pressure 126/75 110/62 O2 Sat by Pulse 92 L 96 Oximetry Medical Decision Making - Medical Decision Making EKG shows atrial fibrillation at 94 bpm QRS is 94 Q-T intervals 362 QTC is 452. Patient's EKG shows no ST segment elevation or depression patient does have some inverted T waves in leads 1 and 2 and aVL. Chest x-ray shows right upper lobe pneumonia I started the patient on Levaquin immediately. - Lab Data Result diagrams: 08/17/17 00:27 08/17/17 00:27 Lab Results 08/17/17 08/17/17 08/17/17 Range/Units 00:27 00:27 00:27 WBC 12.1 H (3.8-10.6) k/uL RBC 4.88 (4.30-5.90) m/uL Hgb 16.0 (13.0-17.5) gm/dL Hct 46.4 (39.0-53.0) % MCV 94.9 (80.0-100.0) fL MCH 32.7 (25.0-35.0) pg MCHC 34.4 (31.0-37.0) g/dL RDW 13.0 (11.5-15.5) % Plt Count 120 L (150-450) k/uL Neutrophils % 81 % Lymphocytes % 10 % Monocytes % 6 % Eosinophils % 1 % Basophils % 0 % Neutrophils # 9.8 H (1.3-7.7) k/uL Lymphocytes # 1.2 (1.0-4.8) k/uL Monocytes # 0.7 (0-1.0) k/uL Eosinophils # 0.1 (0-0.7) k/uL Basophils # 0.0 (0-0.2) k/uL PT (9.0-12.0) sec INR (<1.2) APTT (22.0-30.0) sec Sodium 132 L (137-145) mmol/L Potassium 5.0 (3.5-5.1) mmol/L Chloride 100 (98-107) mmol/L Carbon Dioxide 20 L (22-30) mmol/L Anion Gap 12 mmol/L BUN 22 H (9-20) mg/dL Creatinine 1.40 H (0.66-1.25) mg/dL Est GFR (MDRD) Af Amer 58 (>60 ml/min/1.73 sqM) Est GFR (MDRD) Non-Af 48 (>60 ml/min/1.73 sqM) Glucose 133 H (74-99) mg/dL Plasma Lactic Acid Terry (0.7-2.0) mmol/L Calcium 8.8 (8.4-10.2) mg/dL Total Bilirubin 2.3 H (0.2-1.3) mg/dL AST 47 (17-59) U/L ALT 29 (21-72) U/L Alkaline Phosphatase 77 (38-126) U/L Total Creatine Kinase 35 L (55-170) U/L CK-MB (CK-2) 0.4 (0.0-2.4) ng/mL CK-MB (CK-2) Rel Index 1.1 Troponin I 0.065 H* (0.000-0.034) ng/mL Total Protein 6.9 (6.3-8.2) g/dL Albumin 3.7 (3.5-5.0) g/dL Influenza Type A RNA (Not Detectd) Influenza Type B (PCR) (Not Detectd) 08/17/17 08/17/17 08/17/17 Range/Units 00:27 00:27 00:31 WBC (3.8-10.6) k/uL RBC (4.30-5.90) m/uL Hgb (13.0-17.5) gm/dL Hct (39.0-53.0) % MCV (80.0-100.0) fL MCH (25.0-35.0) pg MCHC (31.0-37.0) g/dL RDW (11.5-15.5) % Plt Count (150-450) k/uL Neutrophils % % Lymphocytes % % Monocytes % % Eosinophils % % Basophils % % Neutrophils # (1.3-7.7) k/uL Lymphocytes # (1.0-4.8) k/uL Monocytes # (0-1.0) k/uL Eosinophils # (0-0.7) k/uL Basophils # (0-0.2) k/uL PT 12.2 H (9.0-12.0) sec INR 1.2 H (<1.2) APTT 26.5 (22.0-30.0) sec Sodium (137-145) mmol/L Potassium (3.5-5.1) mmol/L Chloride (98-107) mmol/L Carbon Dioxide (22-30) mmol/L Anion Gap mmol/L BUN (9-20) mg/dL Creatinine (0.66-1.25) mg/dL Est GFR (MDRD) Af Amer (>60 ml/min/1.73 sqM) Est GFR (MDRD) Non-Af (>60 ml/min/1.73 sqM) Glucose (74-99) mg/dL Plasma Lactic Acid Terry 1.3 (0.7-2.0) mmol/L Calcium (8.4-10.2) mg/dL Total Bilirubin (0.2-1.3) mg/dL AST (17-59) U/L ALT (21-72) U/L Alkaline Phosphatase (38-126) U/L Total Creatine Kinase (55-170) U/L CK-MB (CK-2) (0.0-2.4) ng/mL CK-MB (CK-2) Rel Index Troponin I (0.000-0.034) ng/mL Total Protein (6.3-8.2) g/dL Albumin (3.5-5.0) g/dL Influenza Type A RNA Not Detected (Not Detectd) Influenza Type B (PCR) Not Detected (Not Detectd) Disposition Clinical Impression: Pneumonia Disposition: ADMITTED IP TO THIS HOSP Referrals: James Herman DO [Primary Care Provider] - 1-2 days Time of Disposition: 02:19
[2017-08-17 00:37] LABS: Basophils % (A) 0 %; CH 32.6; CHCM 34.5; Eosinophils # (A) 0.1 k/uL (0-0.7); Eosinophils % (A) 1 %; HCT 46.4 % (39.0-53.0); HDW 2.59; Luc # (Auto) 0.13; Luc % (Auto) 1; Lymphocytes # (A) 1.2 k/uL (1.0-4.8); Lymphocytes % (A) 10 %; MCH 32.7 pg (25.0-35.0); MCHC 34.4 g/dL (31.0-37.0); MCV 94.9 fL (80.0-100.0); Mean Platelet Volume 8.8; Monocytes # (A) 0.7 k/uL (0-1.0); Monocytes % (A) 6 %; Neutrophils # (A) 9.8 k/uL (1.3-7.7); Neutrophils % (A) 81 %; RBC 4.88 m/uL (4.30-5.90); WBC 12.1 k/uL (3.8-10.6); WBC (Perox) 11.04
[2017-08-17] MEDS: SODIUM CHLORIDE 0.9% 500 ML IV SCH ×2 (00:39→02:54)
[2017-08-17 00:48] LABS: INR 1.2 (<1.2); Partial Thromboplastin Time 26.5 sec (22.0-30.0); Prothrombin Time 12.2 sec (9.0-12.0)
[2017-08-17 00:51] LABS: Calcium 8.8 mg/dL (8.4-10.2); Total Bilirubin 2.3 mg/dL (0.2-1.3); Total Protein 6.9 g/dL (6.3-8.2)
--- NOTE | 2017-08-17 01:07 | XR ---
EXAMINATION TYPE: XR chest 2V DATE OF EXAM: 08/17/2017 COMPARISON: 04/11/2017 HISTORY: Fever and weakness TECHNIQUE: Frontal and lateral views of the chest are obtained. FINDINGS: There is a 5 cm patch of consolidation in the posterior and anterior segment of the right upper lobe. The other lung wolf are fairly clear. Heart is enlarged. There is no heart failure. The re is left axillary pacemaker with the lead tip in the right ventricle. There are chest leads. There is no pleural effusion. IMPRESSION: There is new right upper lobe pneumonia in the posterior and anterior segment compared t o last exam. Cardiomegaly.
[2017-08-17 01:32] LABS: Creatine Kinase MB 0.4 ng/mL (0.0-2.4)
[2017-08-17 01:33] LABS: Troponin I 0.065 ng/mL (0.000-0.034)
[2017-08-17] MEDS ORDERED: LEVOFLOXACIN 750MG-D5W PMX 750 MG in DEXTROSE/WATER 1 150ML.BAG IVPB STA (01:54)
[2017-08-17] MEDS ORDERED: PIPERACILLIN-TAZOBACTAM 3.375 GM in DEXTROSE/WATER 1 50ML.BAG IVPB STA (02:20)
[2017-08-17] MEDS ORDERED: PNEUMONIA PROTOCOL UTILIZED 1 EACH MISC PO PRN (02:20)
[2017-08-17] MEDS ORDERED: SODIUM CHLORIDE 0.9% 1,000 ML IV ONE (02:23)
[2017-08-17 03:54] VITALS: BMI 25.9
[2017-08-17 06:04] LABS: Glucose,Whole Blood 121 mg/dL (75-99)
[2017-08-17] MEDS ORDERED: NITROGLYCERIN SL TABS 0.4 MG TAB SUBLINGUAL PRN (08:08)
[2017-08-17] MEDS: TAMSULOSIN 0.4 MG CAP.ER.24H PO SCH (10:17)
[2017-08-17] MEDS: ATENOLOL 25 MG TAB PO SCH (10:17)
[2017-08-17] MEDS: PRAVASTATIN SODIUM 20 MG TAB PO SCH (10:17)
[2017-08-17] MEDS: APIXABAN 5 MG TAB PO SCH ×2 (10:17→20:34)
[2017-08-17] MEDS: ASPIRIN 81 MG PO SCH (10:17)
[2017-08-17] MEDS: SODIUM CHLORIDE 0.9% 1,000 ML IV SCH (10:39)
[2017-08-17] MEDS: ALPRAZolam 0.5 MG TAB PO PRN ×2 (10:45→20:34)
[2017-08-17 11:11] LABS: Appearance,Urine Cloudy (Clear); Bilirubin,Urine Negative (Negative); Glucose,Urine (UA) Negative (Negative); Ketones,Urine Negative (Negative); Leukocyte Esterase,Urine Negative (Negative); Mucus,Urine Moderate /hpf; Nitrite,Urine Negative (Negative); PH, Urine 5.5 (5.0-8.0); Particle Count 7510; Protein,Urine 1+ (Negative); Specific Gravity,Urine 1.021 (1.001-1.035); Squamous Epithelial Cell,Urine <1 /hpf (0-4); UA Billing (MACRO vs. MICRO) MICRO; Urobilinogen,Urine <2.0 mg/dL (<2.0); WBC,Urine 2 /hpf (0-5)
--- NOTE | 2017-08-17 11:59 | P.CRDCN ---
History of Present Illness Consult date: 08/17/17 Requesting physician: Marcello Kearney Reason for Consult (text): Abnormal troponins Chief complaint: Shortness of breath and nonproductive cough History of present illness: This is a pleasant 86-year-old gentleman with known history of coronary artery disease and prior PTCA and stent placement, atrial fibrillation , chronic persistent hypertension, hyperlipidemia, family history of premature coronary artery disease, prior pacemaker implantation. Most recently patient underwent a cardiac catheterization in April of this year I Dr. Samson. Mild irregularities were noted with no critical lesion and medical therapy was advised at that time. presents to the hospital on this occasion with symptoms of shortness of breath with nonproductive cough of a 2 day duration. He also states that prior to coming to the hospital he was in his bed and reached over to get the chart refers phone when he fell onto the floor. He states that he was so weak he could not even lift himself from the floor. For this reason he called EMS. Chest x-ray on admission revealed a new right upper lobe pneumonia. EKG on arrival showed atrial fibrillation with a controlled ventricular response. Nonspecific ST-T wave changes. Temperature on arrival 102.9, blood pressure 126/70, heart rate in the 90s. 92% on room air. Blood cell count 12.1, hemoglobin 16, platelet count 120. Sodium 132, potassium 5.0, BUN 22, creatinine 1.4. Troponins 0.065, 0.062. At the time of my examination this morning, patient continues to have a nonproductive cough, denies any chest discomfort, breathing is overall stable. He is currently on IV antibiotics. Past Medical History Past Medical History: Atrial Fibrillation, Atrial Flutter, Coronary Artery Disease (CAD), Heart Failure, CVA/TIA, Hyperlipidemia, Hypertension, Musculoskeletal Disorder, Osteoarthritis (OA), Prostate Disorder Additional Past Medical History / Comment(s): BPH. TIA 08/2014. GOUT. 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 History of Any Multi-Drug Resistant Organisms: None Reported Past Surgical History: Heart Catheterization, Pacemaker Additional Past Surgical History / Comment(s): PTCA. [facility]. Past Anesthesia/Blood Transfusion Reactions: No Reported Reaction Type of Cardiac Device: Permanent Pacemaker Device Placement Date:: 2007 Past Psychological History: Anxiety, Panic Disorder Additional Psychological History / Comment(s): TAKES RX AT HS, OCC DURING DAY. Smoking Status: Never smoker Past Alcohol Use History: Occasional Past Drug Use History: None Reported - Past Family History Brother(s) Family Medical History: Cancer Additional Family Medical History / Comment(s): Creutzfeldt Jayem Medications and Allergies Home Medications Medication Instructions Recorded Confirmed Type ALPRAZolam [Xanax] 0.5 mg PO TID PRN 08/08/14 08/17/17 History Tamsulosin HCl [Flomax] 0.4 mg PO DAILY 08/08/14 08/17/17 History Atenolol [Tenormin] 25 mg PO DAILY 04/13/15 08/17/17 History Pravastatin Sodium [Pravachol] 20 mg PO DAILY 04/13/15 08/17/17 History Apixaban [Eliquis] 5 mg PO BID 07/23/16 08/17/17 History Aspirin 81 mg PO DAILY 04/14/17 08/17/17 Rx Lisinopril [Prinivil] 5 mg PO DAILY #30 tablet 04/14/17 08/17/17 Rx Nitroglycerin Sl Tabs [Nitrostat] 0.4 mg SUBLINGUAL Q5M PRN #20 tab 04/14/17 Rx Betamethasone Dipropionate 1 applic TOPICAL BID PRN 08/17/17 08/17/17 History [Betamethasone Dipropionate 0.05%] Allergies Allergy/AdvReac Type Severity Reaction Status Date / Time Sulfa (Sulfonamide Allergy Unknown Verified 08/17/17 07:54 Antibiotics) Physical Exam Vitals: Vital Signs Temp Pulse Pulse Resp BP BP BP 08/17/17 10:48 75 08/17/17 10:00 96.8 F L 77 16 123/79 08/17/17 04:00 98.0 F 65 19 105/67 08/17/17 03:00 97.5 F L 74 18 105/63 08/17/17 02:50 98.0 F 68 19 105/65 08/17/17 02:20 08/17/17 02:15 72 18 97/59 08/17/17 01:45 84 18 111/55 08/17/17 01:19 84 18 110/62 08/17/17 00:15 102.9 F H 99 20 126/75 Pulse Ox 08/17/17 10:48 97 08/17/17 10:00 100 08/17/17 04:00 08/17/17 03:00 98 08/17/17 02:50 95 08/17/17 02:20 98 08/17/17 02:15 97 08/17/17 01:45 96 08/17/17 01:19 96 08/17/17 00:15 92 L Intake and Output 08/16/17 08/17/17 08/17/17 22:59 06:59 14:59 Intake Total 50 240 Output Total 259 Balance 50 -19 Intake: Intake, IV Titration 50 Amount Piperacillin-Tazobactam 3 50 .375 gm In Dextrose/Water 1 50ml.bag @ 12.5 mls/hr IVPB Q8HR [facility] Rx#: [id number] Oral 240 Output: Urine 100 Post Void Residual 159 Other: # Bowel Movements 1 Weight 83 kg PHYSICAL EXAMINATION: HEENT: Head is atraumatic, normocephalic. Pupils equal, round. Neck is supple. There is no elevated jugular venous pressure. HEART EXAMINATION: S1 and S2 irregularly irregular a systolic murmur is heard. CHEST EXAMINATION: Lungs reveal coarse crackles bilaterally. ABDOMEN: Soft, nontender. Bowel sounds are heard. No organomegaly noted. EXTREMITIES: 2+ peripheral pulses with no evidence of peripheral edema and no calf tenderness noted. NEUROLOGIC patient is awake, alert and oriented -3. . Results 08/17/17 00:27 08/17/17 00:27 Cardiac Enzymes 08/17/17 08/17/17 08/17/17 Range/Units 00:27 00:27 06:22 AST 47 (17-59) U/L CK-MB (CK-2) 0.4 (0.0-2.4) ng/mL Troponin I 0.065 H* 0.062 H* (0.000-0.034) ng/mL Coagulation 08/17/17 Range/Units 00:27 PT 12.2 H (9.0-12.0) sec APTT 26.5 (22.0-30.0) sec CBC 08/17/17 Range/Units 00:27 WBC 12.1 H (3.8-10.6) k/uL RBC 4.88 (4.30-5.90) m/uL Hgb 16.0 (13.0-17.5) gm/dL Hct 46.4 (39.0-53.0) % Plt Count 120 L (150-450) k/uL Comprehensive Metabolic Panel 08/17/17 Range/Units 00:27 Sodium 132 L (137-145) mmol/L Potassium 5.0 (3.5-5.1) mmol/L Chloride 100 (98-107) mmol/L Carbon Dioxide 20 L (22-30) mmol/L BUN 22 H (9-20) mg/dL Creatinine 1.40 H (0.66-1.25) mg/dL Glucose 133 H (74-99) mg/dL Calcium 8.8 (8.4-10.2) mg/dL AST 47 (17-59) U/L ALT 29 (21-72) U/L Alkaline Phosphatase 77 (38-126) U/L Total Protein 6.9 (6.3-8.2) g/dL Albumin 3.7 (3.5-5.0) g/dL Current Medications Generic Name Dose Route Start Last Admin Trade Name Freq PRN Reason Stop Dose Admin Alprazolam 0.5 mg 08/17/17 08:08 08/17/17 10:45 Xanax PO 0.5 mg TID PRN Administration Anxiety Apixaban 5 mg 08/17/17 09:00 08/17/17 10:17 Eliquis PO 5 mg BID RONALDO Administration Aspirin 81 mg 08/17/17 09:00 08/17/17 10:17 Aspirin PO 81 mg DAILY RONALDO Administration Atenolol 25 mg 08/17/17 09:00 08/17/17 10:17 Tenormin PO 25 mg DAILY RONALDO Administration Levofloxacin 750 mg/ IV 150 mls @ 100 mls/hr 08/18/17 06:00 Solution IVPB Q24H RONLADO Piperacillin/Tazobactam/ 50 mls @ 12.5 mls/hr 08/17/17 16:00 Dextrose 3.375 gm/ IV Solution IVPB 08/27/17 16:01 Q8HR RONALDO Sodium Chloride 1,000 mls @ 50 mls/hr 08/17/17 10:30 08/17/17 10:39 Saline 0.9% IV 50 mls/hr .Q20H RONALDO Administration Lisinopril 5 mg 08/17/17 09:00 Zestril PO DAILY RONALDO Miscellaneous Information 1 each 08/17/17 02:20 Pneumonia Protocol Utilized PO ONCE PRN Per Protocol Nitroglycerin 0.4 mg 08/17/17 08:08 Nitrostat SUBLINGUAL Q5M PRN Chest Pain Pravastatin Sodium 20 mg 08/17/17 09:00 08/17/17 10:17 Pravachol PO 20 mg DAILY RONALDO Administration Tamsulosin HCl 0.4 mg 08/17/17 09:00 08/17/17 10:17 Flomax PO 0.4 mg DAILY RONALDO Administration Intake and Output 08/16/17 08/17/17 08/17/17 22:59 06:59 14:59 Intake Total 50 240 Output Total 259 Balance 50 -19 Intake: Intake, IV Titration 50 Amount Piperacillin-Tazobactam 3 50 .375 gm In Dextrose/Water 1 50ml.bag @ 12.5 mls/hr IVPB Q8HR [facility] Rx#: [id number] Oral 240 Output: Urine 100 Post Void Residual 159 Other: # Bowel Movements 1 Weight 83 kg 08/17/17 00:27 08/17/17 00:27 EKG Interpretations (text) EKG shows atrial fibrillation with nonspecific ST-T wave changes. Assessment and Plan Plan: Assessment and plan #1 right upper lobe pneumonia, currently on IV antibiotics. #2 abnormal troponins, not consistent with acute coronary syndrome, likely secondary to oxygen supply and demand mismatch. #3 known history of coronary artery disease with prior PTCA and stent placement most recent cardiac catheterization was performed in April maximal medical therapy advised at that time. #4 prior pacemaker implantation # 5 chronic persistent atrial fibrillation on Eliquis #6 hypertension #7 hyperlipidemia #8 family history of premature coronary artery disease Plan We will repeat an echocardiogram with Doppler study. Troponin abnormality or not consistent with acute coronary syndrome and are likely secondary to the patient's pneumonia. We'll continue the baby aspirin, along with atenolol, and Eliquis. Further recommendations to follow. DNP note has been reviewed, I agree with a documented findings and plan of care. Patient was seen and examined.
[2017-08-17] MEDS ORDERED: guaiFENesin SYRUP 100MG/5ML 200 MG/10 ML CUP PO PRN (15:07)
[2017-08-17] MEDS: PIPERACILLIN-TAZOBACTAM 3.375 GM in DEXTROSE/WATER 1 50ML.BAG IVPB SCH ×2 (15:36→23:41)
[2017-08-17] MEDS: LISINOPRIL 5 MG TAB PO SCH (15:36)
--- NOTE | 2017-08-17 21:03 | HP ---
HISTORY AND PHYSICAL DATE OF ADMISSION: 08/17/2017 PRESENT COMPLAINT: Chills and rigors. HISTORY OF PRESENTING COMPLAINT: A very pleasant 86-year-old patient of Dr. Herman. Chronic stable medical conditions include coronary artery disease, CHF EF 45%, osteoarthritis, pacemaker with underlying atrial fibrillation, BPH, hypertension, hyperlipidemia. The patient last night started off with chills, rigors, cough, decreased appetite, weak, tired, run down, could do barely anything, decided to come to the ER. Discovered to have a fever of 102 and pneumonia, being admitted for the same. Patient has a cough, but not any sputum. REVIEW OF SYSTEMS: CONSTITUTIONAL: Fever, tired. HEENT: Decreased hearing. RESPIRATORY: As above. CARDIOVASCULAR: None. GASTROINTESTINAL: None. GENITOURINARY: Decreased urine output. GENITOURINARY: As above. MUSCULOSKELETAL: None. DERMATOLOGIC: None. HEMATOLOGIC: None. LYMPHATIC: None. PSYCHIATRY: None. NEUROLOGICAL: None. PAST HISTORY: Coronary artery disease with angioplasty, CHF EF 45%, osteoarthritis, atrial fibrillation, BPH, hypertension, hyperlipidemia. PAST SURGICAL HISTORY: Cardiac catheterization, pacemaker. PSYCH HISTORY: Anxiety, panic disorder. SOCIAL HISTORY: No smoking. Alcohol occasionally. Is a . FAMILY HISTORY: Cancer and Creutzfeldt-Jayme disease. HOME MEDICATIONS: 1. Betamethasone 1 application topical b.i.d. 2. Flomax 0.4 mg p.o. daily. 3. Pravachol 20 mg p.o. daily. 4. Nitrostat 0.4 sublingual q.5 p.r.n. 5. Prinivil 5 mg p.o. daily. 6. Tenormin 25 mg p.o. daily. 7. Aspirin 81 mg p.o. daily. 8. Eliquis 5 mg p.o. b.i.d. 9. Xanax 0.5 p.o. t.i.d. p.r.n. ALLERGIES: SULFUR. PHYSICAL EXAMINATION: VITAL SIGNS: On presentation, temperature 102.9, pulse 99, respirations 20, blood pressure 126/75, pulse ox 92% room air. GENERAL APPEARANCE: Well-built, sitting up, tired-appearing. EYES: Pupils equal. Conjunctivae normal. HEENT: Oral cavity normal. NECK: JVD not raised. Mass not palpable. RESPIRATORY: Effort increased. LUNGS: Bronchial breathing on the right side posteriorly. CARDIOVASCULAR: 1st and 2nd sounds normal. Heart rate regular. No edema. ABDOMEN: Soft, nontender. Liver and spleen not palpable. LYMPHATIC: No lymph node palpable in neck or axillae. PSYCHIATRY: Alert and oriented x3. Mood and affect normal. NEUROLOGICAL: Pupils equal. Cranial nerves grossly intact. Power and sensation grossly intact. INVESTIGATIONS: White count 12.1, hemoglobin 16, platelets 120. Potassium 5, BUN 22, creatinine 1.40. The patient's BUN and creatinine were 24 and 1.33 back in 04/14/2017. A chest x-ray reviewed by me shows right upper lobe pneumonia. ASSESSMENT: 1. Right upper lobe pneumonia suspect gram-negative organism, present on admission. 2. Coronary artery disease with prior history of angioplasty. 3. Benign prostatic hypertrophy. 4. Primary osteoarthritis, multiple joints. 5. Essential hypertension. 6. Hyperlipidemia. 7. Persistent atrial fibrillation with a permanent pacemaker in place. PLAN: Patient is started on IV antibiotics, including IV Zosyn. Home medications are resumed. Care was discussed with the patient. The patient's troponin leak is probably from hemodynamic mismatch, not acute [place]. No coronary symptoms. Care was discussed with the patient. MMODL / IJN: [id number] /
[2017-08-18] MEDS ORDERED: LEVOFLOXACIN 750MG-D5W PMX 750 MG in DEXTROSE/WATER 1 150ML.BAG IVPB SCH (06:00)
[2017-08-18] MEDS: SODIUM CHLORIDE 0.9% 1,000 ML IV SCH (06:52)
--- NOTE | 2017-08-18 08:23 | XR ---
EXAMINATION TYPE: XR chest 2V DATE OF EXAM: 08/18/2017 COMPARISON: Prior chest x-ray 08/17/2017 HISTORY: Pneumonia TECHNIQUE: Frontal and lateral views of the chest are obtained. FINDINGS: Airspace disease is again noted in the right upper lobe. No evident pneumothorax or pleura l effusion. Heart remains enlarged. Pacemaker is stable. IMPRESSION: Right upper lobe pneumonia, follow-up to resolution
[2017-08-18] MEDS: ATENOLOL 25 MG TAB PO SCH (09:24)
[2017-08-18] MEDS: ASPIRIN 81 MG PO SCH (09:24)
[2017-08-18] MEDS: APIXABAN 5 MG TAB PO SCH ×2 (09:24→20:11)
[2017-08-18] MEDS: PRAVASTATIN SODIUM 20 MG TAB PO SCH (09:25)
[2017-08-18] MEDS: TAMSULOSIN 0.4 MG CAP.ER.24H PO SCH (09:25)
[2017-08-18] MEDS: ALPRAZolam 0.5 MG TAB PO PRN ×2 (09:30→20:14)
[2017-08-18] MEDS: PIPERACILLIN-TAZOBACTAM 3.375 GM in DEXTROSE/WATER 1 50ML.BAG IVPB SCH ×2 (09:37→16:53)
[2017-08-18] MEDS: LISINOPRIL 5 MG TAB PO SCH (16:53)
--- NOTE | 2017-08-18 17:06 | P.PN ---
Progress Note - Text Progress Note Date: 08/18/17 DATE OF SERVICE: 08/18/2017 PRESENTING COMPLAINT: Weakness shortness of breath HISTORY OF PRESENT ILLNESS: 86-year-old male who presented via EMS after developing an episode of chills rigors and cough was weak and run down and was unable to ambulate. Found to have a fever 102 and chest x-ray revealed pneumonia admitted for the same. INTERVAL HISTORY: 08/18/2017: Patient seen in follow-up today lying in bed appears comfortable has a productive cough. Chest x-ray done today patient continues to have right upper lobe pneumonia. Continues to feel weak, requires assistance getting out of bed , tolerating his diet eating about 30 -40% of his meals. Patient's heart rhythm is atrial fibrillation he is continued on Eliquis for anticoagulation needs. REVIEW OF SYSTEMS: Done for constitutional ,cardiovascular, GI, pulmonary with relevant findings as above. CURRENT MEDICATIONS Alprazolam, Eliquis, aspirin, Robitussin, Zestril, Zosyn, Pravachol, Flomax. PHYSICAL EXAM VITAL SIGNS: Temperature 97.3, pulse 88, respiratory rate 20, blood pressure 117/59, oxygen saturation 94% on room air. GENERAL APPEARANCE: Lying in bed, not in distress. EYES: Pupils equal. Conjunctiva normal. NECK: JVD not raised. Mass not palpable. RESPIRATORY: Respiratory effort increased Lungs diminished and bronchial breathing on the right posteriorly to auscultation. CARDIOVASCULAR: First and second sounds normal. No edema. ABDOMEN: Soft. Liver and spleen not palpable. No tenderness. No mass palpable. PSYCHIATRY: Alert and oriented x3. Mood and affect normal. INVESTIGATIONS: Chest x-ray: Right upper lobe pneumonia, follow-up to resolution. ASSESSMENT: ASSESSMENT: -Right upper lobe pneumonia suspect gram-negative organism present on admission. -Coronary artery disease with prior history of angioplasty. -Benign prostatic hypertrophy. -Primary osteoarthritis, multiple joints. Bilateral -Essential hypertension. -Hyperlipidemia. -Persistent atrial fibrillation with pacemaker in place, on Eliquis. PLAN: Continue antibiotics in the form of Zosyn, sputum culture pending, echocardiogram pending elevated troponin not consistent with acute coronary syndrome or likely secondary to patient's pneumonia. continue current medication and treatment plan. Discussed with the patient the bedside he is in agreement. We'll follow closely. ORDER FULFILLMENT SPECIALIST statement: Patient was seen and examined by nurse practitioner Rebecca Funk and all elements of the case discussed with attending Dr. Kearney
[2017-08-19] MEDS: PIPERACILLIN-TAZOBACTAM 3.375 GM in DEXTROSE/WATER 1 50ML.BAG IVPB SCH ×3 (00:09→17:00)
[2017-08-19] MEDS: SODIUM CHLORIDE 0.9% 1,000 ML IV SCH (02:45)
--- NOTE | 2017-08-19 05:01 | PN ---
PROGRESS NOTE DATE OF SERVICE: 08/18/2017 ATTENDING NOTE: The patient was seen and examined by me. I discussed with my nurse practitioner, Ms. Funk. This patient admitted with right upper lobe pneumonia, is exactly coughing a little bit of sputum today. Still weak and tired. Did tolerate some diet. PHYSICAL EXAMINATION: On examination, afebrile, pulse 80, respirations 20, blood pressure 117/59, pulse ox 94% on room air. LUNGS: Decreased breath sounds in the upper zone. CARDIOVASCULAR: First and second sounds normal. Awake. INVESTIGATIONS: Troponin noted. ASSESSMENT: 1. Right upper lobe pneumonia, suspect gram-negative organism, present on admission. 2. Troponin leak from hemodynamic mismatch, not acute myocardial infarction. 3. Persistent atrial fibrillation on Eliquis. PLAN: Patient is on IV Zosyn. Fevers have started to come down. Continue treatment with the same. MMODL / IJN: [id number] /
[2017-08-19 07:28] LABS: Basophils % (A) 0 %; CH 32.1; CHCM 32.9; Eosinophils # (A) 0.3 k/uL (0-0.7); Eosinophils % (A) 4 %; HDW 2.72; HGB 15.9 gm/dL (13.0-17.5); Luc # (Auto) 0.11; Luc % (Auto) 1; Lymphocytes # (A) 2.1 k/uL (1.0-4.8); Lymphocytes % (A) 24 %; MCH 31.7 pg (25.0-35.0); MCHC 32.3 g/dL (31.0-37.0); Mean Platelet Volume 8.2; Monocytes # (A) 0.5 k/uL (0-1.0); Monocytes % (A) 6 %; Neutrophils # (A) 5.7 k/uL (1.3-7.7); Neutrophils % (A) 65 %; RDW 12.9 % (11.5-15.5); WBC 8.8 k/uL (3.8-10.6)
[2017-08-19 07:58] LABS: Calcium 8.5 mg/dL (8.4-10.2); Potassium 4.3 mmol/L (3.5-5.1)
[2017-08-19] MEDS: PRAVASTATIN SODIUM 20 MG TAB PO SCH (10:30)
[2017-08-19] MEDS: ASPIRIN 81 MG PO SCH (10:30)
[2017-08-19] MEDS: LISINOPRIL 5 MG TAB PO SCH (10:30)
[2017-08-19] MEDS: APIXABAN 5 MG TAB PO SCH (10:30)
[2017-08-19] MEDS: ATENOLOL 25 MG TAB PO SCH (10:30)
[2017-08-19] MEDS: TAMSULOSIN 0.4 MG CAP.ER.24H PO SCH (10:30)
[2017-08-19] MEDS: ALPRAZolam 0.5 MG TAB PO PRN (10:37)
[2017-08-19 15:17] VITALS: BP 116/69; PULSE 68; RESP 19; TEMP 96
--- NOTE | 2017-08-19 19:44 | P.DS ---
Providers Date of admission: 08/17/17 02:20 Expected date of discharge: 08/19/17 Attending physician: Marcello Kearney Consults: 08/17/17 08:03 Consult Physician Stat Consulting Provider: Lester Saunders Consult Reason/Comments: elevated trop Do you want consulting provider notified?: Yes Primary care physician: James [facility] Course: FINAL DIAGNOSES: -Right upper lobe pneumonia suspect gram-negative organism present on admission. -Troponin leak from hemodynamic mismatch not acute myocardial infarction. -Persistent atrial fibrillation on Eliquis. HOSPTIAL COURSE: 86-year-old male who has a history significant for CHF, osteoarthritis pacemaker , atrial fibrillation BPH hypertension hyperlipidemia, admitted with pneumonia. Found also have a troponin leak, cardiology consulted. Home medications reordered, IV antibiotics initiated, cardiology evaluated the patient, repeated echocardiogram with Doppler. Troponin abnormality not consistent with acute coronary syndrome, likely secondary to patient's pneumonia. Patient has atrial fibrillation and anticoagulation needs are met with Eliquis. Throughout patient 's stay he remained afebrile, breathing improved, activity tolerance improved, tolerated his diet appetite increased, less sputum produced on coughing. Ambulatory in the room and hallway. Condition overall improved cleared by primary and consultants for discharge. PHYSICAL EXAM: CARDIOVASCULAR: Irregular rhythm, no edema noted RESPIRATORY: Respiratory effort normal, lung sounds diminished bilaterally PSYCHIATRY: Alert and oriented 3 mood and affect normal. Patient was seen and examined by nurse practitioner Rebecca Funk in all elements of the case discussed with attending Dr. Kearney DISPOSITION: Discharge home to the care of his family Plan - Discharge Summary New Discharge Prescriptions: New Cefuroxime [Ceftin] 500 mg PO BID #6 tab Continue ALPRAZolam [Xanax] 0.5 mg PO TID PRN PRN Reason: Anxiety Tamsulosin HCl [Flomax] 0.4 mg PO DAILY Pravastatin Sodium [Pravachol] 20 mg PO DAILY Atenolol [Tenormin] 25 mg PO DAILY Apixaban [Eliquis] 5 mg PO BID Aspirin 81 mg PO DAILY Nitroglycerin Sl Tabs [Nitrostat] 0.4 mg SUBLINGUAL Q5M PRN #20 tab PRN Reason: Chest Pain Betamethasone Dipropionate [Betamethasone Dipropionate 0.05%] 1 applic TOPICAL BID PRN PRN Reason: Back of scalp Discontinued Lisinopril [Prinivil] 5 mg PO DAILY #30 tablet Discharge Medication List ALPRAZolam [Xanax] 0.5 mg PO TID PRN 08/08/14 [History] Tamsulosin HCl [Flomax] 0.4 mg PO DAILY 08/08/14 [History] Atenolol [Tenormin] 25 mg PO DAILY 04/13/15 [History] Pravastatin Sodium [Pravachol] 20 mg PO DAILY 04/13/15 [History] Apixaban [Eliquis] 5 mg PO BID 07/23/16 [History] Aspirin 81 mg PO DAILY 04/14/17 [Rx] Nitroglycerin Sl Tabs [Nitrostat] 0.4 mg SUBLINGUAL Q5M PRN #20 tab 04/14/17 [Rx ] Betamethasone Dipropionate [Betamethasone Dipropionate 0.05%] 1 applic TOPICAL BID PRN 08/17/17 [History] Cefuroxime [Ceftin] 500 mg PO BID #6 tab 08/19/17 [Rx] Follow up Appointment(s)/Referral(s): [facility], [NON-STAFF] - James Herman DO [Primary Care Provider] - 1-2 days (Family to schedule appointments. ) Lester Saunders MD [STAFF PHYSICIAN] - 1 Week (Family to schedule appointments.) Ambulatory/Diagnostic Orders: Basic Metabolic Panel [LAB.AMB] Location: Determined By Patient Patient Instructions/Handouts: Pneumonia (DC) Activity/Diet/Wound Care/Special Instructions: Heart healthy diet Discharge Disposition: HOME WITH HOME HEALTH SERVICES
[2017-08-19] MEDS ORDERED: CEFUROXIME 250 MG TAB PO SCH (21:00)
[2017-08-19] MEDS ORDERED: APIXABAN 2.5 MG TABLET PO SCH (21:00)
--- NOTE | 2017-08-19 23:11 | DS ---
DISCHARGE SUMMARY ATTENDING NOTE: This patient was seen and examined by me. I discussed the case with my nurse practitioner, Ms. Funk. The patient is doing much better. Sputum has significantly gone down. Up and about in the hallway. Eating much better. Keen to go home. PHYSICAL EXAMINATION: Lungs are clear. CARDIOVASCULAR: First and second sounds normal. The patient is afebrile. LABORATORY DATA: White count is normal at 8.8. The patient is doing much better. Patient to complete course of home with Ceftin. Care was discussed in detail with the patient. Discharge planning more than 35 minutes. MMODL / IJN: [id number] /
== END 2017-08-19 18:43 | disposition home health service (06) | DRG 178 ==
LOC: EC 00:09 → 6SEL 02:20 → 4MS4W 08-18 22:22
PROVIDERS: ADMIT Hospitalist; ATTEND Hospitalist
DX: J15.6 Pneumonia due to other Gram-negative bacteria (principal); I48.1 Persistent atrial fibrillation; I50.22 Chronic systolic (congestive) heart failure; I48.92 Unspecified atrial flutter; E78.5 Hyperlipidemia, unspecified; I11.0 Hypertensive heart disease with heart failure; F41.0 Panic disorder [episodic paroxysmal anxiety]; I25.10 Atherosclerotic heart disease of native coronary artery without angina pectoris; I48.2 Chronic atrial fibrillation; M10.9 Gout, unspecified; M15.9 Polyosteoarthritis, unspecified; N40.0 Benign prostatic hyperplasia without lower urinary tract symptoms; R74.8 Abnormal levels of other serum enzymes; Z79.01 Long term (current) use of anticoagulants; Z79.82 Long term (current) use of aspirin; Z79.899 Other long term (current) drug therapy; Z95.0 Presence of cardiac pacemaker; Z95.5 Presence of coronary angioplasty implant and graft; Z88.2 Allergy status to sulfonamides
CPT/HCPCS: 36415; 71020; 80048; 80053; 81001; 82550; 82553; 83605; 84484; 85025; 85610; 85730; 87040; 87070; 87086; 87205; 87502; 93005; 94760; 96361; 96365; 99285

== ENCOUNTER 2018-06-07 15:22 | Emergency (ER) | payer MEDICARE, OTHER ==
[2018-06-07] MEDS ORDERED: SODIUM CHLORIDE 0.9% 1,000 ML IV STA (16:24)
[2018-06-07 17:21] LABS: Basophils # (A) 0.1 k/uL (0-0.2); Basophils % (A) 1 %; Eosinophils # (A) 0.3 k/uL (0-0.7); Eosinophils % (A) 5 %; HCT 48.1 % (39.0-53.0); Lymphocytes # (A) 1.6 k/uL (1.0-4.8); Lymphocytes % (A) 26 %; MCH 31.8 pg (25.0-35.0); MCHC 33.2 g/dL (31.0-37.0); MCV 95.9 fL (80.0-100.0); Mean Platelet Volume 8.8; Monocytes # (A) 0.4 k/uL (0-1.0); Monocytes % (A) 6 %; Neutrophils # (A) 3.7 k/uL (1.3-7.7); Neutrophils % (A) 61 %; Platelet Count 117 k/uL (150-450); RBC 5.02 m/uL (4.30-5.90); RDW 13.7 % (11.5-15.5); WBC 6.1 k/uL (3.8-10.6)
[2018-06-07 17:39] LABS: ALT 30 U/L (21-72); AST 29 U/L (17-59); Albumin 4.1 g/dL (3.5-5.0); Alkaline Phosphatase 46 U/L (38-126); Amylase 78 U/L (30-110); Anion Gap 8 mmol/L; Blood Urea Nitrogen 22 mg/dL (9-20); C Reactive Protein <5.0 mg/L (<10.0); Carbon Dioxide 26 mmol/L (22-30); Chloride 104 mmol/L (98-107); Glucose 73 mg/dL (74-99); Lipase 85 U/L (23-300); Potassium 4.7 mmol/L (3.5-5.1); Sodium 138 mmol/L (137-145); Total Bilirubin 0.6 mg/dL (0.2-1.3); Total Protein 6.7 g/dL (6.3-8.2)
--- NOTE | 2018-06-07 17:55 | XR ---
EXAMINATION TYPE: XR KUB, 2 views DATE OF EXAM: 06/07/2018 COMPARISON: NONE HISTORY: Right-sided abdominal pain TECHNIQUE: 2 upright views FINDINGS: Cardiac pacemaker is noted. The cardiac silhouette is moderately enlarged. The visualized l shay bases and pleural spaces are negative. There is no pneumoperitoneum or pneumatosis. There are gas distended bowel within the upper quadrants , but there is no dilation of the bowel loops and gas is seen throughout the visualized colon. No acute skeletal or soft tissue findings. No visceromegaly. IMPRESSION: No acute process.
--- NOTE | 2018-06-07 18:10 | ED ---
Abdominal Pain HPI - General Chief Complaint: Abdominal Pain Stated Complaint: abd pain Time Seen by Provider: 06/07/18 16:05 Source: patient Mode of arrival: ambulatory Limitations: no limitations - History of Present Illness Initial Comments: 87 years old very active male comes in with abdominal pain pain is located in the right upper quadrant area it lasted for about 2 hours he had some mom. Which he drinks pretty regularly. Paced well then he had some diaphoresis no fever no chills no chest pain no shortness of breath no diarrhea. I am he did try a constipation medicine MiraLAX. - Related Data Home Medications Medication Instructions Recorded Confirmed ALPRAZolam [Xanax] 0.5 mg PO TID PRN 08/08/14 08/17/17 Tamsulosin HCl [Flomax] 0.4 mg PO DAILY 08/08/14 08/17/17 Atenolol [Tenormin] 25 mg PO DAILY 04/13/15 08/17/17 Pravastatin Sodium [Pravachol] 20 mg PO DAILY 04/13/15 08/17/17 Apixaban [Eliquis] 5 mg PO BID 07/23/16 08/17/17 Betamethasone Dipropionate 1 applic TOPICAL BID PRN 08/17/17 08/17/17 [Betamethasone Dipropionate 0.05%] Previous Rx's Medication Instructions Recorded Aspirin 81 mg PO DAILY 04/14/17 Nitroglycerin Sl Tabs [Nitrostat] 0.4 mg SUBLINGUAL Q5M PRN #20 tab 04/14/17 Cefuroxime [Ceftin] 500 mg PO BID #6 tab 08/19/17 Allergies Allergy/AdvReac Type Severity Reaction Status Date / Time Sulfa (Sulfonamide Allergy Unknown Verified 08/17/17 07:54 Antibiotics) Review of Systems ROS Statement: Those systems with pertinent positive or pertinent negative responses have been documented in the HPI. ROS Other: All systems not noted in ROS Statement are negative. Past Medical History Past Medical History: Atrial Fibrillation, Atrial Flutter, Coronary Artery Disease (CAD), Heart Failure, CVA/TIA, Hyperlipidemia, Hypertension, Musculoskeletal Disorder, Osteoarthritis (OA), Prostate Disorder Additional Past Medical History / Comment(s): BPH. TIA 08/2014. GOUT. 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 History of Any Multi-Drug Resistant Organisms: None Reported Past Surgical History: Heart Catheterization, Pacemaker Additional Past Surgical History / Comment(s): PTCA. KD CTR. Past Anesthesia/Blood Transfusion Reactions: No Reported Reaction Type of Cardiac Device: Permanent Pacemaker Device Placement Date:: 2007 Past Psychological History: Anxiety, Panic Disorder Smoking Status: Never smoker Past Alcohol Use History: Occasional Past Drug Use History: None Reported - Past Family History Brother(s) Family Medical History: Cancer Additional Family Medical History / Comment(s): Creutzfeldt Jayme General Exam - General Exam Comments Initial Comments: General: The patient is awake and alert, in no distress, and does not appear acutely ill. Skin: Skin is warm and dry and no rashes or lesions are noted. Eye: Pupils are equal, round and reactive to light, extra-ocular movements are intact; there is normal conjunctiva bilaterally. Ears, nose, mouth and throat: There are moist mucous membranes and no oral lesions. Neck: The neck is supple, there is no tenderness or JVD. Cardiovascular: There is a regular rate and rhythm. No murmur, rub or gallop is appreciated. Respiratory: To auscultation bilateral, no wheezing no rhonchi no distress respiratory nguyen noticed Gastrointestinal: Soft, non-distended, non-tender abdomen without masses or organomegaly noted. There is no rebound or guarding present. Bowel sounds are unremarkable.abd exam is absolutely normal Back: There is no tenderness to palpation in the midline. There is no obvious deformity. Musculoskeletal: Normal ROM, no tenderness, There is no pedal edema. There is no calf tenderness or swelling. No cords were appreciated. Neurological: CN II-XII intact, Cranial nerves III through XII are intact. There are no obvious motor or sensory deficits. Coordination appears grossly intact. Speech is normal. Psychiatric: Cooperative, appropriate mood & affect, normal judgment. Limitations: no limitations Course Vital Signs 06/07/18 15:53 Temperature 98.2 F Pulse Rate 76 Respiratory 18 Rate Blood Pressure 159/96 O2 Sat by Pulse 96 Oximetry Medical Decision Making - Lab Data Result diagrams: 06/07/18 17:10 06/07/18 17:10 Lab Results 06/07/18 06/07/18 Range/Units 17:10 17:10 WBC 6.1 (3.8-10.6) k/uL RBC 5.02 (4.30-5.90) m/uL Hgb 16.0 (13.0-17.5) gm/dL Hct 48.1 (39.0-53.0) % MCV 95.9 (80.0-100.0) fL MCH 31.8 (25.0-35.0) pg MCHC 33.2 (31.0-37.0) g/dL RDW 13.7 (11.5-15.5) % Plt Count 117 L (150-450) k/uL Neutrophils % 61 % Lymphocytes % 26 % Monocytes % 6 % Eosinophils % 5 % Basophils % 1 % Neutrophils # 3.7 (1.3-7.7) k/uL Lymphocytes # 1.6 (1.0-4.8) k/uL Monocytes # 0.4 (0-1.0) k/uL Eosinophils # 0.3 (0-0.7) k/uL Basophils # 0.1 (0-0.2) k/uL Sodium 138 (137-145) mmol/L Potassium 4.7 (3.5-5.1) mmol/L Chloride 104 (98-107) mmol/L Carbon Dioxide 26 (22-30) mmol/L Anion Gap 8 mmol/L BUN 22 H (9-20) mg/dL Creatinine 1.20 (0.66-1.25) mg/dL Est GFR (CKD-EPI)AfAm 63 (>60 ml/min/1.73 sqM) Est GFR (CKD-EPI)NonAf 54 (>60 ml/min/1.73 sqM) Glucose 73 L (74-99) mg/dL Calcium 9.0 (8.4-10.2) mg/dL Total Bilirubin 0.6 (0.2-1.3) mg/dL AST 29 (17-59) U/L ALT 30 (21-72) U/L Alkaline Phosphatase 46 (38-126) U/L C-Reactive Protein <5.0 (<10.0) mg/L Total Protein 6.7 (6.3-8.2) g/dL Albumin 4.1 (3.5-5.0) g/dL Amylase 78 (30-110) U/L Lipase 85 (23-300) U/L Disposition Clinical Impression: Abdominal pain Disposition: HOME SELF-CARE Condition: Good Instructions: Abdominal Pain (ED) Additional Instructions: Rice Zantac and 50 mg twice daily for daily for next month and return to the ER if symptoms get worse Is patient prescribed a controlled substance at d/c from ED?: No Referrals: James Herman DO [Primary Care Provider] - 1-2 days
[2018-06-07 19:09] VITALS: BP 124/70; PULSE 78; RESP 20; TEMP 98
== END 2018-06-07 19:09 | disposition home or self-care (01) ==
LOC: EC 15:22
DX: R10.11 Right upper quadrant pain (principal); R61 Generalized hyperhidrosis; I48.91 Unspecified atrial fibrillation; I48.92 Unspecified atrial flutter; N40.0 Benign prostatic hyperplasia without lower urinary tract symptoms; I25.10 Atherosclerotic heart disease of native coronary artery without angina pectoris; I11.0 Hypertensive heart disease with heart failure; I50.9 Heart failure, unspecified; E78.5 Hyperlipidemia, unspecified; N42.9 Disorder of prostate, unspecified; Z86.73 Personal history of transient ischemic attack (TIA), and cerebral infarction without residual deficits; Z79.01 Long term (current) use of anticoagulants; Z79.899 Other long term (current) drug therapy; Z88.2 Allergy status to sulfonamides; Z95.0 Presence of cardiac pacemaker; Z95.818 Presence of other cardiac implants and grafts
CPT/HCPCS: 36415; 74018; 80053; 82150; 83690; 85025; 86140; 96360; 96361; 99284

== ENCOUNTER 2018-07-11 05:56 | Day surgery (SDC) | payer MEDICARE, OTHER ==
[2018-07-06 10:28] VITALS: BMI 26.4
[2018-07-11] MEDS ORDERED: SODIUM CHLORIDE 0.9% 1,000 ML IV SCH (06:17)
[2018-07-11] MEDS ORDERED: SODIUM CHLORIDE 0.9% 500 ML IV ONE (06:29)
[2018-07-11 06:45] VITALS: BP 155/62; RESP 16; TEMP 98.2
[2018-07-11] MEDS ORDERED: IOPAMIDOL-250 50ML BTL IV ONE (07:26)
--- NOTE | 2018-07-11 07:56 | P.PCN ---
Preoperative Diagnosis: Indication for the procedure Left ventricular ejection fraction to 5% based on 2-D echo and stress test. Normal stress test. RV pacing percentage greater than 40%. Underlying permanent atrial fibrillation, single-chamber right ventricular pacemaker Awaiting pacemaker generator change for device at [facility], awaiting upgrade to a biventricular pacemaker Cine fluoroscopy of the lead No fractures or breaks noted. Passive lead positioned in the RV apex Left upper extremity venogram 50 mL IV dye. Patent left subclavian vein/axillary/innominate vein Plan Proceed with upgrade to a biventricular pacemaker electively Continue beta blockers and ELIQUIS Disposition: same day
[2018-07-11 08:10] VITALS: PULSE 67
== END 2018-07-11 08:10 | disposition home or self-care (01) ==
LOC: CATHEP 05:56
PROVIDERS: ATTEND Internal Medicine Clinical Cardiac Electrophysiology
DX: I48.2 Chronic atrial fibrillation (principal); I10 Essential (primary) hypertension; E78.5 Hyperlipidemia, unspecified; Z82.49 Family history of ischemic heart disease and other diseases of the circulatory system; Z88.2 Allergy status to sulfonamides; Z95.5 Presence of coronary angioplasty implant and graft; M35.3 Polymyalgia rheumatica; Z79.01 Long term (current) use of anticoagulants; Z79.82 Long term (current) use of aspirin; Z79.899 Other long term (current) drug therapy; Z95.0 Presence of cardiac pacemaker
CPT/HCPCS: 75820; 76000; Q9966

== ENCOUNTER → 2018-07-22 | Outpatient (CLI) | payer MEDICARE, OTHER ==
[2018-07-22 10:11] LABS: HCT 50.6 % (39.0-53.0); HGB 16.9 gm/dL (13.0-17.5); MCH 32.1 pg (25.0-35.0); MCHC 33.4 g/dL (31.0-37.0); Mean Platelet Volume 8.9; Platelet Count 134 k/uL (150-450); RBC 5.28 m/uL (4.30-5.90); RDW 13.4 % (11.5-15.5); WBC 7.5 k/uL (3.8-10.6)
[2018-07-22 10:32] LABS: Potassium 4.2 mmol/L (3.5-5.1)
== END | disposition home or self-care (01) ==
LOC: LABPAT 09:33
PROVIDERS: ATTEND Internal Medicine Clinical Cardiac Electrophysiology
DX: Z01.812 Encounter for preprocedural laboratory examination (principal); I48.1 Persistent atrial fibrillation
CPT/HCPCS: 36415; 80051; 82565; 82947; 84520; 85027

== ENCOUNTER 2018-08-08 07:47 | Day surgery (SDC) | payer MEDICARE, OTHER ==
[2018-08-04 10:53] VITALS: BMI 26.4
[~2018-08-08 07:47] MED LIST: LIDOCAINE 1% 20 ML VIAL (10MG/ML) FOR IV START INTRADERMA PRN; MIDAZOLAM 2 MG/2 ML VIAL IV PRN; ceFAZolin 1,000 MG in SODIUM CHLORIDE 0.9% IRRIGATIO 250 ML IRRIGATION ONE; ceFAZolin IN SWFI 2 GM/20 ML SYRINGE IVP ONE
[2018-08-08] MEDS: SODIUM CHLORIDE 0.9% 1,000 ML IV SCH (08:19)
[2018-08-08] MEDS ORDERED: fentaNYL (PF) 50 MCG/ML 2 ML AMP ONE (10:41)
[2018-08-08] MEDS ORDERED: PROPOFOL 10 MG/ML 20 ML VIAL IV ONE (10:41)
[2018-08-08] MEDS ORDERED: MIDAZOLAM 2 MG/2 ML VIAL ONE (10:41)
[2018-08-08] MEDS ORDERED: ceFAZolin 1,000 MG VIAL ONE (10:41)
[2018-08-08] MEDS ORDERED: LIDOCAINE 1% INJ 10MG/ML (20 ML MDV) ONE ×2 (11:04)
[2018-08-08] MEDS ORDERED: LIDOCAINE 1% INJ 10MG/ML (20 ML MDV) SQ ONE (11:22)
[2018-08-08] MEDS ORDERED: ACETAMINOPHEN TAB 325 MG TAB PO PRN (13:42)
[2018-08-08] MEDS ORDERED: ALPRAZolam 0.5 MG TAB PO PRN (13:51)
[2018-08-08] MEDS: LACTATED RINGERS 1,000 ML IV SCH (15:05)
[2018-08-08] MEDS ORDERED: ceFAZolin IN SWFI 2 GM/20 ML SYRINGE IVP SCH (16:00)
--- NOTE | 2018-08-08 17:05 | PCN ---
PROCEDURE NOTE Terry Browne is an 87-year-old male patient with atrial fibrillation, bradycardia, single-chamber permanent pacemaker implantation, high RV pacing percentage, mild cardiomyopathy. He was brought in for upgrade to LV pacing versus physiologic septal pacing. Patient was brought to the EP lab in a fasting state. Written informed consent was obtained prior to the procedure. The left shoulder area was prepped and draped as per protocol. The incision made directly over the generator and carried down to the level of the generator. The generator was explanted, but left connected to the lead. Partial capsulectomy was performed. A new subfascial pocket was made and extended more caudally and medially. Axillary vein access was obtained and via this, a sheath was placed. Initially the coronary sinus catheter was placed via this to access the coronary sinus os. However, the patient has a very large right atrium and despite multiple different sheaths and multiple different coronary sinus catheters, the coronary sinus could not be accessed. Following this, the His bundle sheath and the lead was used and the His bundle was mapped and the lead was screwed in within 6 minutes. Selective capture was noted at high outputs with loss of selective His capture at 7.3 V at 1 millisecond. Thereafter nonselective capture was noted down to 2.5 V at 1 millisecond and thereafter there was complete loss of capture. The sheaths were removed. The lead was secured to the underlying pectoralis muscle. The pocket was irrigated with antibiotic solution. Leads were connected to the new generator. Dual-chamber pacemaker with the His bundle lead in the right atrial port and the RV lead in the RV port. AV delay programmed at 80 milliseconds. DDDR mode 60- 120 ppm. The patient tolerated the procedure well without any acute complications. RESULT: Physiologic septal pacing for this elderly gentleman with atrial fibrillation with bradycardia with a high RV pacing percentage and cardiomyopathy. PLAN: Continue current medications without any changes FINAL IMPRESSION: 1. Cardiomyopathy. 2. Bradycardia. 3. Permanent atrial fibrillation. 4. Dilated right atrium. 5. Dyslipidemia. 6. High RV pacing percentage status post physiologic septal pacing. MMODL / IJN: [id number] /
[2018-08-08] MEDS ORDERED: PRAVASTATIN SODIUM 20 MG TAB PO SCH (21:00)
[2018-08-08] MEDS: ceFAZolin IN SWFI 2 GM/20 ML SYRINGE IVP SCH (23:48)
[2018-08-09] MEDS: LACTATED RINGERS 1,000 ML IV SCH (05:36)
[2018-08-09] MEDS: SODIUM CHLORIDE 0.9% 1,000 ML IV SCH (05:36)
[2018-08-09] MEDS: ceFAZolin IN SWFI 2 GM/20 ML SYRINGE IVP SCH ×2 (05:36→11:53)
[2018-08-09 07:11] VITALS: RESP 16
--- NOTE | 2018-08-09 08:15 | XR ---
EXAMINATION TYPE: XR chest 2V DATE OF EXAM: 08/09/2018 COMPARISON: Prior chest x-ray 08/18/2017 HISTORY: Lead placement check TECHNIQUE: Frontal and lateral views of the chest are obtained. FINDINGS: The patient is rotated The airspace disease seen on prior exam has resolved. There is a gen erator in the left pectoral region which is been changed in the interval, there are leads present wit hin the right heart, likely right ventricle. No evident pneumothorax or pleural effusion. Heart remai ns enlarged. IMPRESSION: Stable cardiomegaly. Improvement in pneumonia. Leads as described. Rotated exam.
--- NOTE | 2018-08-09 08:39 | P.DS ---
Providers Attending physician: Phillip Garzon Primary care physician: [facility] [place] Course: Patient is doing well. He is sitting up comfortably in bed. His pacemaker site is healed well and there is mild soakage but no swelling Afebrile 90F, pulse rate in the 60s, blood pressure 145/81 mmHg Breath sounds are clear no rhonchi no crackles Heart sounds S1 and S2 are regular and normal Abdomen soft nontender Extremities warm no edema Pacemaker site is healing well No hematoma Impression Atrial fibrillation with bradycardia status post single chamber pacemaker with high RV pacing percentage and cardio myopathy Upgrade to physiologic septal pacing/dual-chamber pacemaker device implanted Plan Discharge home after completion of IV antibiotics, continue current medications follow-up in the device clinic in 5 days and follow with Dr. Camilo in Plan - Discharge Summary Discharge Rx Participant: No New Discharge Prescriptions: Continue ALPRAZolam [Xanax] 0.5 mg PO TID PRN PRN Reason: Anxiety Tamsulosin HCl [Flomax] 0.4 mg PO DAILY Pravastatin Sodium [Pravachol] 20 mg PO HS Apixaban [Eliquis] 5 mg PO BID Aspirin 81 mg PO DAILY Metoprolol Tartrate [Lopressor] 50 mg PO DAILY Ketoconazole [Ketoconazole 2%] 1 applic TOPICAL DAILY PRN PRN Reason: skin lesions Nitroglycerin [Nitroglycerin 400MCG [place]] 1 spray TRANSLINGU Q5M PRN PRN Reason: Chest Pain Polyethylene Glycol 3350 [Miralax] 17 gm PO DAILY Discharge Medication List ALPRAZolam [Xanax] 0.5 mg PO TID PRN 08/08/14 [History] Tamsulosin HCl [Flomax] 0.4 mg PO DAILY 08/08/14 [History] Pravastatin Sodium [Pravachol] 20 mg PO HS 04/13/15 [History] Apixaban [Eliquis] 5 mg PO BID 07/23/16 [History] Aspirin 81 mg PO DAILY 04/14/17 [Rx] Ketoconazole [Ketoconazole 2%] 1 applic TOPICAL DAILY PRN 07/06/18 [History] Metoprolol Tartrate [Lopressor] 50 mg PO DAILY 07/06/18 [History] Nitroglycerin [Nitroglycerin 400MCG [place]] 1 spray TRANSLINGU Q5M PRN 08/04/18 [ History] Polyethylene Glycol 3350 [Miralax] 17 gm PO DAILY 08/04/18 [History] Follow up Appointment(s)/Referral(s): Phillip Garzon MD [STAFF PHYSICIAN] - 1 Week (Device clinic follow-up in [address] Camilo/Ruth nurse practitioner follow-up in 3-4 months) Activity/Diet/Wound Care/Special Instructions: PATIENT EDUCATION MATERIAL Instructions following a heart rhythm device implant. 1. Keep dressing DRY for 5 DAYS. You may cover the area with Saran or Cling Wrap, prior to a shower. 2. The dressing will be removed in the Device Clinic at [facility]. Absorbable sutures were used to close the wound. 3. Avoid raising the left arm above the shoulder level. 4 week restriction 4. Avoid arm movements, like backscratching, rubbing the head, or pulling on a cord. 4 weeks restriction 5. Gentle range of motion movements of the shoulder, closest to the incision should be performed to avoid a frozen shoulder. (Pendulum exercises of the shoulder) 6. The opposite arm may be used freely. 7. Avoid driving for 7 days. 8. Avoid activities such as golfing, swimming, weed whacking, lifting more than 10 pounds weight, bowling, gymnastics and weight training/lifting. (6 weeks restriction) 9. Activities such as wood chopping with an axe, pull-ups in the gymnasium, power lifting, arc-welding, being close to home induction cooktops will always be a problem. 10. Arm sling is only a reminder not to raise the arm above the head. You do not need to keep the arm completely immobilized. Your free to move the arm and use it and for normal activities. In case of any problems, please call [facility] [place], @ [phone], Attention: Device Clinic Device clinic follow-up in 5 days Follow-up with primary machine compositor in 2-3 months Discharge Disposition: HOME SELF-CARE
[2018-08-09] MEDS ORDERED: TAMSULOSIN 0.4 MG CAP.ER.24H PO SCH (09:00)
[2018-08-09] MEDS ORDERED: METOPROLOL TARTRATE 50 MG TAB PO SCH (09:00)
[2018-08-09 11:30] VITALS: BP 170/83; PULSE 60; TEMP 98.6
== END 2018-08-09 13:11 | disposition home or self-care (01) ==
LOC: CATHEP 07:47 → 3OBS 13:19 → CATHEP 08-09 13:11
PROVIDERS: ATTEND Internal Medicine Clinical Cardiac Electrophysiology
DX: I48.2 Chronic atrial fibrillation (principal); I42.9 Cardiomyopathy, unspecified; E78.5 Hyperlipidemia, unspecified; I10 Essential (primary) hypertension; I25.10 Atherosclerotic heart disease of native coronary artery without angina pectoris; Z82.49 Family history of ischemic heart disease and other diseases of the circulatory system; Z88.2 Allergy status to sulfonamides; Z95.0 Presence of cardiac pacemaker; Z79.82 Long term (current) use of aspirin; Z79.01 Long term (current) use of anticoagulants; Z79.899 Other long term (current) drug therapy; Z95.5 Presence of coronary angioplasty implant and graft
CPT/HCPCS: 33214; 71046; C1769 ×7; C1894; C1892; C1730 ×2; C1898; C1785; J0690 ×3; J2001

== ENCOUNTER 2018-12-20 14:47 | Observation (INO) | payer MEDICARE, OTHER ==
[2018-12-20] MEDS ORDERED: SODIUM CHLORIDE 0.9% 500 ML 500 ML IV STA (15:00)
[2018-12-20] MEDS ORDERED: ASPIRIN 81 MG PO STA (15:00)
--- NOTE | 2018-12-20 15:13 | ED ---
General Adult HPI - General Chief complaint: Chest Pain Stated complaint: WEAKNESS Time Seen by Provider: 12/20/18 14:49 Source: patient, EMS Mode of arrival: EMS Limitations: physical limitation - History of Present Illness Initial comments: Dictation was produced using DOCUSYS dictation software. please excuse any grammatical, word or spelling errors. Chief Complaint: 87-year-old male past medical history of percutaneous angioplasty, myocardial infarction, coronary artery disease, heart failure, pacemaker presents with episode of chest pressure. History of Present Illness: Patient is 87-year-old male. 20 years ago he had angioplasty performed. Patient has had multiple cardiac tests between then and now. Most recent cath Was last year. Patient states he was at home when he was using a motorized screwdriver. He then felt several seconds of substernal chest pressure. That he was overcome with some generalized weakness. Denies any radiation of symptoms to the shoulders or jaw. No associated diaphoresis or nausea. Patient states his symptoms lasted for several minutes however resolved. Denies any cough. No associated shortness of breath. Denies any lower extremity symptoms. The ROS documented in this emergency department record has been reviewed and confirmed by me. Those systems with pertinent positive or negative responses have been documented in the HPI. All other systems are other negative and/or noncontributory. PHYSICAL EXAM: General Impression: Alert and oriented x3, not in acute distress HEENT: Normocephalic atraumatic, extra-ocular movements intact, pupils equal and reactive to light bilaterally, mucous membranes moist. Cardiovascular: Heart regular rate and rhythm, S1&S2 audible, no murmurs, rubs or gallops Chest: Lungs clear to auscultation bilaterally, no rhonchi, no wheeze, no rales Abdomen: Bowel sounds present, abdomen soft, non-tender, non-distended, no organomegaly Musculoskeletal: Pulses present and equal in all extremities, no peripheral edema Motor: Power 5/5 bilaterally, no focal deficits noted Neurological: CN II-XII grossly intact, no focal motor or sensory deficits noted Skin: Intact with no visualized rashes Psych: Normal affect and mood ED course: 87-year-old male presents with chest pain. As upon arrival are within acceptable limits. EKG shows paced rhythm however no signs to suggest ischemia or infarction. Patient is well-appearing currently and denies any symptoms at this time Laboratory evaluation obtained. Cardiac workups negative. Patient has mild elevation of potassium 5.5. Patient metabolic panel is otherwise within acceptable limits. Sugar is 70. Patient given by mouth glucose. Cardiac enzymes are negative. Chest x-ray is unremarkable. Patient admitted for chest pain. She will have serial troponins. Patient given aspirin. EKG interpretation: Ventricular rate 62, paced rhythm, MA interval 120, QS 150, QTc 503. No MA prolongation, no QTC prolongation, no ST or T-wave changes noted. Overall, this EKG is unremarkable - Related Data Home Medications Medication Instructions Recorded Confirmed ALPRAZolam [Xanax] 0.5 mg PO TID PRN 08/08/14 12/20/18 Tamsulosin HCl [Flomax] 0.4 mg PO HS 08/08/14 12/20/18 Pravastatin Sodium [Pravachol] 20 mg PO HS 04/13/15 12/20/18 Apixaban [Eliquis] 5 mg PO BID 07/23/16 12/20/18 Nitroglycerin [Nitroglycerin 1 spray TRANSLINGU Q5M PRN 08/04/18 12/20/18 400MCG [place]] Metoprolol Succinate [Toprol XL] 50 mg PO DAILY 12/20/18 12/20/18 Omeprazole 20 mg PO DAILY 12/20/18 12/20/18 amLODIPine [Norvasc] 5 mg PO DAILY 12/20/18 12/20/18 Previous Rx's Medication Instructions Recorded Aspirin 81 mg PO DAILY 04/14/17 Allergies Allergy/AdvReac Type Severity Reaction Status Date / Time Sulfa (Sulfonamide Allergy Unknown Verified 12/20/18 16:00 Antibiotics) Review of Systems ROS Statement: Those systems with pertinent positive or pertinent negative responses have been documented in the HPI. ROS Other: All systems not noted in ROS Statement are negative. Past Medical History Past Medical History: Coronary Artery Disease (CAD), Hypertension Additional Past Medical History / Comment(s): BPH. TIA 08/2014. GOUT. 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 JUST REPLACED 2017 Last Myocardial Infarction Date:: 1994 History of Any Multi-Drug Resistant Organisms: None Reported Past Surgical History: Heart Catheterization, Joint Replacement, Pacemaker Additional Past Surgical History / Comment(s): PTCA. KD CTR., rt knee replacement. bilt carpal tunner Past Anesthesia/Blood Transfusion Reactions: No Reported Reaction Type of Cardiac Device: Permanent Pacemaker Device Placement Date:: 2007 Past Psychological History: Anxiety, Panic Disorder Smoking Status: Never smoker Past Alcohol Use History: Occasional Past Drug Use History: None Reported - Past Family History Brother(s) Family Medical History: Cancer Additional Family Medical History / Comment(s): Clayton Delacruz Son(s) Family Medical History: Cancer Additional Family Medical History / Comment(s): leukemia General Exam Limitations: physical limitation Course Vital Signs 12/20/18 12/20/18 12/20/18 14:50 15:11 17:13 Temperature 98.1 F 97.8 F Pulse Rate 62 62 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 ] Respiratory 18 16 Rate Blood Pressure 140/77 140/77 O2 Sat by Pulse 99 97 Oximetry Medical Decision Making - Lab Data Result diagrams: 12/20/18 15:00 12/20/18 15:00 Lab Results 12/20/18 12/20/18 12/20/18 Range/Units 15:00 15:00 15:00 WBC 5.3 (3.8-10.6) k/uL RBC 4.77 (4.30-5.90) m/uL Hgb 15.0 (13.0-17.5) gm/dL Hct 46.1 (39.0-53.0) % MCV 96.6 (80.0-100.0) fL MCH 31.3 (25.0-35.0) pg MCHC 32.4 (31.0-37.0) g/dL RDW 13.6 (11.5-15.5) % Plt Count 131 L (150-450) k/uL Neutrophils % 57 % Lymphocytes % 27 % Monocytes % 7 % Eosinophils % 7 % Basophils % 1 % Neutrophils # 3.0 (1.3-7.7) k/uL Lymphocytes # 1.4 (1.0-4.8) k/uL Monocytes # 0.4 (0-1.0) k/uL Eosinophils # 0.4 (0-0.7) k/uL Basophils # 0.1 (0-0.2) k/uL PT (9.0-12.0) sec INR (<1.2) APTT (22.0-30.0) sec Sodium 139 (137-145) mmol/L Potassium 5.5 H (3.5-5.1) mmol/L Chloride 101 (98-107) mmol/L Carbon Dioxide 30 (22-30) mmol/L Anion Gap 8 mmol/L BUN 22 H (9-20) mg/dL Creatinine 1.48 H (0.66-1.25) mg/dL Est GFR (CKD-EPI)AfAm 49 (>60 ml/min/1.73 sqM) Est GFR (CKD-EPI)NonAf 42 (>60 ml/min/1.73 sqM) Glucose 70 L (74-99) mg/dL Calcium 9.1 (8.4-10.2) mg/dL Magnesium 2.2 (1.6-2.3) mg/dL Total Bilirubin 1.1 (0.2-1.3) mg/dL AST 38 (17-59) U/L ALT 30 (21-72) U/L Alkaline Phosphatase 42 (38-126) U/L Total Creatine Kinase 130 (55-170) U/L CK-MB (CK-2) 2.2 (0.0-2.4) ng/mL CK-MB (CK-2) Rel Index 1.7 Troponin I <0.012 (0.000-0.034) ng/mL Total Protein 7.2 (6.3-8.2) g/dL Albumin 4.3 (3.5-5.0) g/dL Lipase 114 (23-300) U/L 12/20/18 Range/Units 15:00 WBC (3.8-10.6) k/uL RBC (4.30-5.90) m/uL Hgb (13.0-17.5) gm/dL Hct (39.0-53.0) % MCV (80.0-100.0) fL MCH (25.0-35.0) pg MCHC (31.0-37.0) g/dL RDW (11.5-15.5) % Plt Count (150-450) k/uL Neutrophils % % Lymphocytes % % Monocytes % % Eosinophils % % Basophils % % Neutrophils # (1.3-7.7) k/uL Lymphocytes # (1.0-4.8) k/uL Monocytes # (0-1.0) k/uL Eosinophils # (0-0.7) k/uL Basophils # (0-0.2) k/uL PT 10.6 (9.0-12.0) sec INR 1.0 (<1.2) APTT 25.2 (22.0-30.0) sec Sodium (137-145) mmol/L Potassium (3.5-5.1) mmol/L Chloride (98-107) mmol/L Carbon Dioxide (22-30) mmol/L Anion Gap mmol/L BUN (9-20) mg/dL Creatinine (0.66-1.25) mg/dL Est GFR (CKD-EPI)AfAm (>60 ml/min/1.73 sqM) Est GFR (CKD-EPI)NonAf (>60 ml/min/1.73 sqM) Glucose (74-99) mg/dL Calcium (8.4-10.2) mg/dL Magnesium (1.6-2.3) mg/dL Total Bilirubin (0.2-1.3) mg/dL AST (17-59) U/L ALT (21-72) U/L Alkaline Phosphatase (38-126) U/L Total Creatine Kinase (55-170) U/L CK-MB (CK-2) (0.0-2.4) ng/mL CK-MB (CK-2) Rel Index Troponin I (0.000-0.034) ng/mL Total Protein (6.3-8.2) g/dL Albumin (3.5-5.0) g/dL Lipase (23-300) U/L Disposition Clinical Impression: Chest pain Disposition: ADMITTED IP TO THIS HOSP Condition: Fair Referrals: James Herman DO [Primary Care Provider] - 1-2 days Decision Time: 17:32
--- NOTE | 2018-12-20 15:28 | XR ---
EXAMINATION TYPE: XR chest 2V DATE OF EXAM: 12/20/2018 COMPARISON: 08/09/2018 TECHNIQUE: PA and lateral views submitted. HISTORY: Chest pain FINDINGS: The lungs are clear and there is no pneumothorax, pleural effusion, or focal pneumonia. Heart is en larged and there is a cardiac device. Atherosclerotic change aorta. Hypertrophic and degenerative jose roberto nge of the spine. Linear density right upper lobe compatible scarring or atelectasis. No overt failur e. Arthropathy of the shoulders. IMPRESSION: 1. No acute process.
[2018-12-20 15:35] LABS: Basophils # (A) 0.1 k/uL (0-0.2); Basophils % (A) 1 %; Eosinophils # (A) 0.4 k/uL (0-0.7); Eosinophils % (A) 7 %; HCT 46.1 % (39.0-53.0); Lymphocytes # (A) 1.4 k/uL (1.0-4.8); Lymphocytes % (A) 27 %; MCH 31.3 pg (25.0-35.0); MCHC 32.4 g/dL (31.0-37.0); MCV 96.6 fL (80.0-100.0); Mean Platelet Volume 8.5; Monocytes # (A) 0.4 k/uL (0-1.0); Monocytes % (A) 7 %; Neutrophils % (A) 57 %; Platelet Count 131 k/uL (150-450); RBC 4.77 m/uL (4.30-5.90); RDW 13.6 % (11.5-15.5); WBC 5.3 k/uL (3.8-10.6)
[2018-12-20 15:42] LABS: Partial Thromboplastin Time 25.2 sec (22.0-30.0); Potassium 5.5 mmol/L (3.5-5.1); Prothrombin Time 10.6 sec (9.0-12.0)
[2018-12-20 15:43] LABS: Albumin 4.3 g/dL (3.5-5.0); Calcium 9.1 mg/dL (8.4-10.2); Creatine Kinase 130 U/L (55-170); Magnesium 2.2 mg/dL (1.6-2.3); Total Bilirubin 1.1 mg/dL (0.2-1.3); Total Protein 7.2 g/dL (6.3-8.2)
[2018-12-20 15:54] LABS: Creatine Kinase MB 2.2 ng/mL (0.0-2.4); Troponin I <0.012 ng/mL (0.000-0.034)
[2018-12-20] MEDS ORDERED: NITROGLYCERIN SL TABS 0.4 MG TAB SUBLINGUAL PRN (17:29)
[2018-12-20] MEDS ORDERED: ALPRAZolam 0.5 MG TAB PO PRN (20:47)
[2018-12-20] MEDS ORDERED: PRAVASTATIN SODIUM 20 MG TAB PO SCH (21:00)
[2018-12-20] MEDS: APIXABAN 5 MG TAB PO SCH (21:34)
[2018-12-20 22:00] LABS: Creatine Kinase MB 1.9 ng/mL (0.0-2.4); Troponin I 0.015 ng/mL (0.000-0.034)
[2018-12-21 03:44] LABS: Creatine Kinase MB 1.5 ng/mL (0.0-2.4); Troponin I 0.022 ng/mL (0.000-0.034)
[2018-12-21 04:17] LABS: Cholesterol 157 mg/dL (<200); HDL Cholesterol 38 mg/dL (40-60); LDL Cholesterol,Calculated 98 mg/dL (0-99); Triglycerides 103 mg/dL (<150)
[2018-12-21 07:41] VITALS: RESP 18
--- NOTE | 2018-12-21 08:05 | P.PN ---
Subjective Progress Note Date: 12/21/18 Principal diagnosis: Chest pain This is a pleasant 87-year-old gentleman who sees Dr. Garzon in the office on regular basis with a past medical history significant for coronary artery disease was nonobstructive based on heart catheterization was performed in 2017 , permanent pacemaker implantation, chronic atrial fibrillation, hypertension, and dyslipidemia, was admitted to the hospital with chest discomfort. The patient was in his usual state of health until yesterday when he was using a screwdriver outside to do some work and he started experiencing chest discomfort. He described the discomfort as a pressure across the chest without any radiation to the arm or neck or shoulders and without any associated symptoms of shortness of breath, sweating, dizziness or lightheadedness or syncope. He stated that the weather was very cold when he was doing that work. The chest discomfort lasted only for 1 minute. He went inside and he started feeling better already. The patient continues to be chest pain-free during his hospitalization. The EKG showed underlying atrial fibrillation with ventricular paced rhythm. The chest x-ray did not show any acute abnormalities. 3 sets of cardiac enzymes were checked and came in to be unremarkable. Objective - Vital Signs Vital signs: Vital Signs Temp 97.5 F L 12/21/18 07:15 Pulse 58 L 12/21/18 07:15 Resp 18 12/21/18 07:15 BP 120/73 12/21/18 07:15 Pulse Ox 98 12/21/18 07:42 Intake & Output 12/20/18 12/21/18 12/21/18 18:59 06:59 18:59 Intake Total 740 Balance 740 Weight 85.275 kg Intake: Amount of Fluid Infused ( 500 ml) Oral 240 Other: Voiding Method Toilet Urinal # Voids 1 - Constitutional General appearance: Present: no acute distress - Respiratory Respiratory: bilateral: CTA - Cardiovascular Rhythm: regular Heart sounds: normal: S1, S2 - Labs CBC & Chem 7: 12/20/18 15:00 12/20/18 15:00 Labs: Abnormal Lab Results - Last 24 Hours (Table) 12/20/18 12/20/18 12/20/18 Range/Units 15:00 15:00 15:00 Plt Count 131 L (150-450) k/uL Potassium 5.5 H (3.5-5.1) mmol/L BUN 22 H (9-20) mg/dL Creatinine 1.48 H (0.66-1.25) mg/dL Glucose 70 L (74-99) mg/dL HDL Cholesterol 38 L (40-60) mg/dL Assessment and Plan Assessment: Assessment #1 when episode of chest discomfort which has resolved. #2 known mild nonobstructive CAD based on heart catheterization 2 years ago #3 hypertension #4 dyslipidemia #5 permanent pacemaker implantation #6 underlying atrial fibrillation Plan #1 I would consider conservative medical approach for this 87-year-old gentleman #2 I am going to add oral nitrates to the current medical regimen #3 The patient up and around. If he is pain-free he might be able to go home. #4 if he develops any more chest discomfort further cardiac testing to be done #5 follow-up with the patient Thank you for allowing us participate in his care
[2018-12-21] MEDS: APIXABAN 5 MG TAB PO SCH (08:26)
[2018-12-21] MEDS ORDERED: ISOSORBIDE MONONITRATE ER 30 MG TAB.ER.24H PO SCH (09:00)
[2018-12-21] MEDS ORDERED: ASPIRIN 325 MG TAB PO SCH (09:00)
[2018-12-21] MEDS ORDERED: NITROGLYCERIN TRANSLINGU PRN (14:10)
[2018-12-21] MEDS ORDERED: amLODIPine 5 MG TAB PO SCH (14:15)
[2018-12-21 15:33] VITALS: BP 122/75; PULSE 72; TEMP 97.7
--- NOTE | 2018-12-21 15:39 | P.HPIM ---
History of Present Illness Combined H&P and discharge summary This is a pleasant 87 years old male who presents because of central chest pain for a few seconds while he was outside trying to carry some of his home tools he felt chest pain and cold weather and he came inside and the second was resolved, however patient got worried and call 911 and it did come to emergency room for further evaluation. Patient has been evaluated by employment instructional associate and recommended discharge patient if people couldn't ambulate in the [facility] with no symptoms or difficulty. Patient was able to walk back and forth 7 times along the hallway of the [facility] with brisk walking with no chest pain or dyspnea. Patient has normal other symptoms. No dizziness, no change in urine or bowel habits. No fever. Patient tolerating diet well has normal bowel movements. Patient has high potassium on admission 5.5, patient confirms that he ate banana around that time. His creatinine is 1.4 which is close to his baseline of 1.2-1.5. Repeat potassium: 5.1, pt states he eats two bananas each day , pt was counseled to cut down on benign 18 as this increases his risk of hyperkalemia. Risks including but not limiting to hyperkalemia, arrhythmia and are explained to the patient and he verbalized understanding and acceptance. Patient was cleared by cardiology for discharge Problems and management plan was discussed with the patient and he verbalized understanding and acceptance Patient was found stable and can be discharged home however he needs follow-up as an outpatient Review of systems CONSTITUTIONAL: No fever, no malaise, no fatigue. HEENT: No recent visual problems or hearing problems. Denied any sore throat. CARDIOVASCULAR: No orthopnea, PND, no palpitations, no syncope. PULMONARY: No shortness of breath, no cough, no hemoptysis. GASTROINTESTINAL: No diarrhea, no nausea, no vomiting, no abdominal pain. Normoactive bowel sounds. NEUROLOGICAL: No headaches, no weakness, no numbness. HEMATOLOGICAL: Denies any bleeding or petechiae. GENITOURINARY: Denies any burning micturition, frequency, or urgency. MUSCULOSKELETAL/RHEUMATOLOGICAL: Denies any joint pain, swelling, or any muscle pain. ENDOCRINE: Denies any polyuria or polydipsia. Medication: Xanax, Eliquis, aspirin, Imdur, Nitrostat, Pravachol, Flomax, omeprazole, pravastatin, nitroglycerin Gen: patient is a AAOx3, no distress CVS: S1-S2, RRR, no murmur Lungs: B/L CTA, no wheezing Abdomen: soft, no distention, no tenderness, positive bowel sounds Extremity: no leg edema or induration Time spent more than 35 minutes Past Medical History Past Medical History: Coronary Artery Disease (CAD), Hypertension, Myocardial Infarction ([place]) Additional Past Medical History / Comment(s): BPH. TIA 08/2014. GOUT. PACEMAKER (copy of card in chart), [employer]. JUST REPLACED 08/2018. Last Myocardial Infarction Date:: 1998 History of Any Multi-Drug Resistant Organisms: None Reported Past Surgical History: Heart Catheterization, Joint Replacement, Pacemaker Additional Past Surgical History / Comment(s): PTCA. KD CTR., rt knee replacement. bilt carpal tunnel. Past Anesthesia/Blood Transfusion Reactions: No Reported Reaction Type of Cardiac Device: Permanent Pacemaker Device Placement Date:: 08/2018 Past Psychological History: Anxiety, Panic Disorder Additional Psychological History / Comment(s): TAKES RX AT HS, OCC/PRN DURING DAY. Smoking Status: Never smoker Past Alcohol Use History: None Reported, Occasional Past Drug Use History: None Reported - Past Family History Brother(s) Family Medical History: Cancer Additional Family Medical History / Comment(s): Creutzfeldani Jayme Son(s) Family Medical History: Cancer Additional Family Medical History / Comment(s): leukemia Medications and Allergies Home Medications Medication Instructions Recorded Confirmed Type ALPRAZolam [Xanax] 0.5 mg PO TID PRN 08/08/14 12/20/18 History Tamsulosin HCl [Flomax] 0.4 mg PO DAILY 08/08/14 12/20/18 History Pravastatin Sodium [Pravachol] 20 mg PO HS 04/13/15 12/20/18 History Apixaban [Eliquis] 5 mg PO BID 07/23/16 12/20/18 History Aspirin 81 mg PO DAILY 04/14/17 12/20/18 Rx Nitroglycerin [Nitroglycerin 1 spray TRANSLINGU Q5M PRN 08/04/18 12/20/18 History 400MCG [place]] Metoprolol Succinate [Toprol XL] 50 mg PO DAILY 12/20/18 12/20/18 History Omeprazole 20 mg PO DAILY 12/20/18 12/20/18 History amLODIPine [Norvasc] 5 mg PO DAILY 12/20/18 12/20/18 History Isosorbide Mononitrate ER [Imdur] 30 mg PO DAILY #90 tab.er.24h 12/21/18 Rx Allergies Allergy/AdvReac Type Severity Reaction Status Date / Time Sulfa (Sulfonamide Allergy Anaphylaxis Verified 12/20/18 20:29 Antibiotics) Physical Exam Vitals: Vital Signs Temp Pulse Pulse Pulse Resp BP BP 12/21/18 12:00 63 60 18 12/21/18 11:34 97.9 F 60 18 107/62 12/21/18 08:00 63 58 L 18 12/21/18 07:42 12/21/18 07:15 97.5 F L 58 L 18 120/73 12/21/18 04:00 63 16 12/21/18 03:45 97.5 F L 61 16 121/66 12/20/18 23:44 97.4 F L 64 16 114/69 12/20/18 23:29 64 17 12/20/18 20:00 64 61 18 12/20/18 18:46 97.5 F L 83 18 155/89 12/20/18 18:04 17 12/20/18 18:00 98.3 F 62 16 152/90 12/20/18 17:13 97.8 F 62 16 140/77 12/20/18 15:11 60 12/20/18 14:50 98.1 F 62 18 140/77 Pulse Ox 12/21/18 12:00 12/21/18 11:34 95 12/21/18 08:00 12/21/18 07:42 98 12/21/18 07:15 97 12/21/18 04:00 12/21/18 03:45 96 12/20/18 23:44 97 12/20/18 23:29 12/20/18 20:00 12/20/18 18:46 100 12/20/18 18:04 12/20/18 18:00 98 12/20/18 17:13 97 12/20/18 15:11 12/20/18 14:50 99 Intake and Output 12/20/18 12/21/18 12/21/18 22:59 06:59 14:59 Intake Total 740 400 Balance 740 400 Intake: Amount of Fluid Infused ( 500 ml) Oral 240 200 Other 200 Other: Voiding Method Toilet Toilet Toilet Urinal Urinal Urinal # Voids 1 1 Results CBC & Chem 7: 12/20/18 15:00 12/21/18 14:17 Labs: Abnormal Lab Results - Last 24 Hours (Table) 12/20/18 12/20/18 12/20/18 Range/Units 15:00 15:00 15:00 Plt Count 131 L (150-450) k/uL Potassium 5.5 H (3.5-5.1) mmol/L BUN 22 H (9-20) mg/dL Creatinine 1.48 H (0.66-1.25) mg/dL Glucose 70 L (74-99) mg/dL HDL Cholesterol 38 L (40-60) mg/dL Thrombosis Risk Factor Assmnt - Choose All That Apply Each Risk Factor Represents 3 Points: Age 75 years or older Other congenital or acquired thrombophilia - If yes, enter type in comment: No Thrombosis Risk Factor Assessment Total Risk Factor Score: 3 Thrombosis Risk Factor Assessment Level: Moderate Risk
[2018-12-22] MEDS ORDERED: PANTOPRAZOLE 40 MG TABLET PO SCH (07:30)
[2018-12-22] MEDS ORDERED: METOPROLOL SUCCINATE (ER) 50 MG TAB.ER.24H PO SCH (09:00)
[2018-12-22] MEDS ORDERED: TAMSULOSIN 0.4 MG CAP.ER.24H PO SCH (09:00)
== END 2018-12-21 16:15 | disposition home or self-care (01) ==
LOC: EC 14:47 → 1SOBS 17:29
PROVIDERS: ADMIT Internal Medicine; ATTEND Internal Medicine
DX: R07.89 Other chest pain (principal); R53.1 Weakness; I48.2 Chronic atrial fibrillation; E78.5 Hyperlipidemia, unspecified; E87.5 Hyperkalemia; I25.10 Atherosclerotic heart disease of native coronary artery without angina pectoris; I11.0 Hypertensive heart disease with heart failure; I50.9 Heart failure, unspecified; N40.0 Benign prostatic hyperplasia without lower urinary tract symptoms; M10.9 Gout, unspecified; F41.0 Panic disorder [episodic paroxysmal anxiety]; F41.9 Anxiety disorder, unspecified; Z79.01 Long term (current) use of anticoagulants; Z79.82 Long term (current) use of aspirin; Z79.899 Other long term (current) drug therapy; Z88.2 Allergy status to sulfonamides; Z86.73 Personal history of transient ischemic attack (TIA), and cerebral infarction without residual deficits; Z95.0 Presence of cardiac pacemaker; Z96.651 Presence of right artificial knee joint; I25.2 Old myocardial infarction; Z82.0 Family history of epilepsy and other diseases of the nervous system; Z80.6 Family history of leukemia; Z80.9 Family history of malignant neoplasm, unspecified
CPT/HCPCS: 96360; 96361; 99285; 36415; 93005; 80061; 80053; 82550 ×2; 82553 ×2; 83690; 83735; 84132; 84484 ×2; 85025; 85610; 85730; 71046; G0378 ×2

== ENCOUNTER → 2019-01-10 | Outpatient (CLI) | payer MEDICARE, OTHER ==
--- NOTE | 2019-01-10 11:42 | US ---
EXAMINATION TYPE: US kidneys/renal and bladder DATE OF EXAM: 01/10/2019 COMPARISON: NONE CLINICAL HISTORY: N28.9 disorder fo kidney and ureter, unspecified. EXAM MEASUREMENTS: Right Kidney: 8.8 x 3.4 x 4.0 cm cm Left Kidney: 9.3 x 5.0 x 4.4 cm Post Void Residual Volume: 18.7 mL Right Kidney: small cortical cyst lower pole 0.7 x 0.5 x 0.6 cm Left Kidney: small cortical cyst lower pole 0.5 x 0.7 x 0.5 cm Bladder: wnl enlarged prostate Bilateral Jets seen: Yes Normal Post Void Residual: Yes There is no evidence for hydronephrosis at this point in time. No nephrolithiasis is seen. No solid masses are identified. The urinary bladder is anechoic. Bilateral ureteral jets are seen. IMPRESSION: 1. Small renal cortical cysts noted. 2. Enlarged prostate gland.
== END ==
LOC: RADUSWWP 10:54
PROVIDERS: ATTEND Family Medicine
DX: N28.1 Cyst of kidney, acquired (principal); N40.0 Benign prostatic hyperplasia without lower urinary tract symptoms
CPT/HCPCS: 76770

== ENCOUNTER 2019-07-25 19:26 | Emergency (ER) | payer MEDICARE, OTHER ==
[2019-07-25 19:32] VITALS: TEMP 97.6
[2019-07-25 19:39] LABS: Glucose,Whole Blood 122 mg/dL (75-99)
[2019-07-25] MEDS ORDERED: SODIUM CHLORIDE 0.9% 1,000 ML IV STA (19:45)
--- NOTE | 2019-07-25 20:02 | ED ---
Syncope HPI - General Chief Complaint: Recheck/Abnormal Lab/Rx Stated Complaint: dizziness,weakness Time Seen by Provider: 07/25/19 19:31 Source: patient, EMS, RN notes reviewed, old records reviewed Mode of arrival: EMS Limitations: no limitations - History of Present Illness Initial Comments: This is a 80-year-old male the ER for evaluation presented for evaluation of not feeling well. Patient has no medical history is for diabetes patient was found by EMS to be a little bit weak lightheaded and dizzy. Blood sugar was low low 60s. Patient states he did not eat dinner tonight. He didn't go to the local pool to do some exercises. During his exercise became very weak and fell using pass out weak from his body. No headache no chest pain or shortness with abdominal pain currently at this time patient states he is back to baseline he was fed here in the ER feels normal. MD Complaint: almost passed out -: minutes(s) Prodromal Symptoms: lightheaded -: second(s) Witnessed: yes - by bystander, yes - by EMS Injuries Sustained Associated with Event: None Current Symptoms: back to baseline History: previous syncopal episode Context: during exertion Treatments Prior to Arrival: glucose, IV fluids - Related Data Home Medications Medication Instructions Recorded Confirmed ALPRAZolam [Xanax] 0.5 mg PO TID PRN 08/08/14 12/20/18 Tamsulosin HCl [Flomax] 0.4 mg PO DAILY 08/08/14 12/20/18 Pravastatin Sodium [Pravachol] 20 mg PO HS 04/13/15 12/20/18 Apixaban [Eliquis] 5 mg PO BID 07/23/16 12/20/18 Nitroglycerin [Nitroglycerin 1 spray TRANSLINGU Q5M PRN 08/04/18 12/20/18 400MCG [place]] Metoprolol Succinate [Toprol XL] 50 mg PO DAILY 12/20/18 12/20/18 Omeprazole 20 mg PO DAILY 12/20/18 12/20/18 amLODIPine [Norvasc] 5 mg PO DAILY 12/20/18 12/20/18 Previous Rx's Medication Instructions Recorded Aspirin 81 mg PO DAILY 04/14/17 Isosorbide Mononitrate ER [Imdur] 30 mg PO DAILY #90 tab.er.24h 12/21/18 Allergies Allergy/AdvReac Type Severity Reaction Status Date / Time Sulfa (Sulfonamide Allergy Anaphylaxis Verified 07/25/19 19:33 Antibiotics) Review of Systems ROS Statement: Those systems with pertinent positive or pertinent negative responses have been documented in the HPI. ROS Other: All systems not noted in ROS Statement are negative. Past Medical History Past Medical History: Coronary Artery Disease (CAD), Hypertension, Myocardial Infarction ([place]) Additional Past Medical History / Comment(s): BPH. TIA 08/2014. GOUT. PACEMAKER (copy of card in chart), [employer]. JUST REPLACED 08/2018. Last Myocardial Infarction Date:: 1998 History of Any Multi-Drug Resistant Organisms: None Reported Past Surgical History: Heart Catheterization, Joint Replacement, Pacemaker Additional Past Surgical History / Comment(s): PTCA. KD CTR., rt knee replacement. bilt carpal tunnel. Past Anesthesia/Blood Transfusion Reactions: No Reported Reaction Type of Cardiac Device: Permanent Pacemaker Device Placement Date:: 08/2018 Past Psychological History: Anxiety, Panic Disorder Smoking Status: Never smoker Past Alcohol Use History: None Reported, Occasional Past Drug Use History: None Reported - Past Family History Brother(s) Family Medical History: Cancer Additional Family Medical History / Comment(s): Creutzfeldt Jayme Son(s) Family Medical History: Cancer Additional Family Medical History / Comment(s): leukemia General Exam Limitations: no limitations General appearance: alert, in no apparent distress Head exam: Present: atraumatic, normocephalic, normal inspection Eye exam: Present: normal appearance, PERRL, EOMI. Absent: scleral icterus, conjunctival injection, periorbital swelling ENT exam: Present: normal exam, mucous membranes moist Neck exam: Present: normal inspection. Absent: tenderness, meningismus, lymphadenopathy Respiratory exam: Present: normal lung sounds bilaterally. Absent: respiratory distress, wheezes, rales, rhonchi, stridor Cardiovascular Exam: Present: regular rate, normal rhythm, normal heart sounds. Absent: systolic murmur, diastolic murmur, rubs, gallop, clicks GI/Abdominal exam: Present: soft, normal bowel sounds. Absent: distended, tenderness, guarding, rebound, rigid Extremities exam: Present: normal inspection, full ROM, normal capillary refill. Absent: tenderness, pedal edema, joint swelling, calf tenderness Back exam: Present: normal inspection Neurological exam: Present: alert, oriented X3, CN II-XII intact Psychiatric exam: Present: normal affect, normal mood Skin exam: Present: warm, dry, intact, normal color. Absent: rash Course Vital Signs 07/25/19 07/25/19 07/25/19 19:30 20:00 20:30 Temperature 97.6 F Pulse Rate 74 59 L 61 Respiratory 16 14 13 Rate Blood Pressure 92/74 116/70 111/68 O2 Sat by Pulse 100 Oximetry 07/25/19 21:00 Temperature Pulse Rate 60 Respiratory 12 Rate Blood Pressure 127/79 O2 Sat by Pulse Oximetry - Reevaluation(s) Reevaluation #1: 07/25/19 20:08 Medical records reviewed Reevaluation #2: 07/25/19 20:08 Patient remains without complaint, has no complaints of shortness of breath no abdominal pain no chest pain no headache Reevaluation #3: Patient remains without significant complaint throughout ER stay, no recurrent syncopal event no headache chest pain shortness breath or abdominal pain EKG Findings - EKG Comments: EKG Findings:: EKG shows paced rhythm rate of 60, QRS 156, QTc 430 Medical Decision Making - Medical Decision Making 88 to the ER today. He presents today for evaluation regards to near syncopal event will slowly today. Patient's BMP lightheaded blood sugar blood pressure dropped per EMS. Patient symptoms are significantly improved is able to eat able to drink and patient given hydration here in the ER. Patient has no complaints without complaint throughout ER stay. Patient can be discharged home - Lab Data Result diagrams: 07/25/19 20:18 07/25/19 20:18 Lab Results 07/25/19 07/25/19 07/25/19 Range/Units 19:35 20:18 20:18 WBC 7.3 (3.8-10.6) k/uL RBC 4.42 (4.30-5.90) m/uL Hgb 14.2 (13.0-17.5) gm/dL Hct 41.9 (39.0-53.0) % MCV 94.8 (80.0-100.0) fL MCH 32.3 (25.0-35.0) pg MCHC 34.0 (31.0-37.0) g/dL RDW 15.4 (11.5-15.5) % Plt Count 113 L (150-450) k/uL Neutrophils % 72 % Lymphocytes % 15 % Monocytes % 5 % Eosinophils % 5 % Basophils % 1 % Neutrophils # 5.3 (1.3-7.7) k/uL Lymphocytes # 1.1 (1.0-4.8) k/uL Monocytes # 0.4 (0-1.0) k/uL Eosinophils # 0.4 (0-0.7) k/uL Basophils # 0.1 (0-0.2) k/uL PT (9.0-12.0) sec INR (<1.2) APTT (22.0-30.0) sec D-Dimer (<0.60) mg/L FEU Sodium 136 L (137-145) mmol/L Potassium 4.3 (3.5-5.1) mmol/L Chloride 101 (98-107) mmol/L Carbon Dioxide 23 (22-30) mmol/L Anion Gap 12 mmol/L BUN 28 H (9-20) mg/dL Creatinine 1.45 H (0.66-1.25) mg/dL Est GFR (CKD-EPI)AfAm 49 (>60 ml/min/1.73 sqM) Est GFR (CKD-EPI)NonAf 43 (>60 ml/min/1.73 sqM) Glucose 130 H (74-99) mg/dL POC Glucose (mg/dL) 122 H (75-99) mg/dL POC Glu T[employer] ID Ginny Brink Plasma Lactic Acid Terry (0.7-2.0) mmol/L Calcium 8.8 (8.4-10.2) mg/dL Phosphorus 4.6 H (2.5-4.5) mg/dL Magnesium 2.2 (1.6-2.3) mg/dL Total Bilirubin 0.8 (0.2-1.3) mg/dL AST 27 (17-59) U/L ALT 19 L (21-72) U/L Alkaline Phosphatase 46 (38-126) U/L Creatine Kinase 53 L (55-170) U/L Troponin I (0.000-0.034) ng/mL NT-Pro-B Natriuret Pep pg/mL Total Protein 6.8 (6.3-8.2) g/dL Albumin 4.0 (3.5-5.0) g/dL 07/25/19 07/25/19 07/25/19 Range/Units 20:18 20:18 20:18 WBC (3.8-10.6) k/uL RBC (4.30-5.90) m/uL Hgb (13.0-17.5) gm/dL Hct (39.0-53.0) % MCV (80.0-100.0) fL MCH (25.0-35.0) pg MCHC (31.0-37.0) g/dL RDW (11.5-15.5) % Plt Count (150-450) k/uL Neutrophils % % Lymphocytes % % Monocytes % % Eosinophils % % Basophils % % Neutrophils # (1.3-7.7) k/uL Lymphocytes # (1.0-4.8) k/uL Monocytes # (0-1.0) k/uL Eosinophils # (0-0.7) k/uL Basophils # (0-0.2) k/uL PT 10.9 (9.0-12.0) sec INR 1.0 (<1.2) APTT 25.8 (22.0-30.0) sec D-Dimer 0.55 (<0.60) mg/L FEU Sodium (137-145) mmol/L Potassium (3.5-5.1) mmol/L Chloride (98-107) mmol/L Carbon Dioxide (22-30) mmol/L Anion Gap mmol/L BUN (9-20) mg/dL Creatinine (0.66-1.25) mg/dL Est GFR (CKD-EPI)AfAm (>60 ml/min/1.73 sqM) Est GFR (CKD-EPI)NonAf (>60 ml/min/1.73 sqM) Glucose (74-99) mg/dL POC Glucose (mg/dL) (75-99) mg/dL POC Glu [employer] ID Plasma Lactic Acid Terry 1.4 (0.7-2.0) mmol/L Calcium (8.4-10.2) mg/dL Phosphorus (2.5-4.5) mg/dL Magnesium (1.6-2.3) mg/dL Total Bilirubin (0.2-1.3) mg/dL AST (17-59) U/L ALT (21-72) U/L Alkaline Phosphatase (38-126) U/L Creatine Kinase (55-170) U/L Troponin I (0.000-0.034) ng/mL NT-Pro-B Natriuret Pep 2300 pg/mL Total Protein (6.3-8.2) g/dL Albumin (3.5-5.0) g/dL 07/25/19 Range/Units 20:18 WBC (3.8-10.6) k/uL RBC (4.30-5.90) m/uL Hgb (13.0-17.5) gm/dL Hct (39.0-53.0) % MCV (80.0-100.0) fL MCH (25.0-35.0) pg MCHC (31.0-37.0) g/dL RDW (11.5-15.5) % Plt Count (150-450) k/uL Neutrophils % % Lymphocytes % % Monocytes % % Eosinophils % % Basophils % % Neutrophils # (1.3-7.7) k/uL Lymphocytes # (1.0-4.8) k/uL Monocytes # (0-1.0) k/uL Eosinophils # (0-0.7) k/uL Basophils # (0-0.2) k/uL PT (9.0-12.0) sec INR (<1.2) APTT (22.0-30.0) sec D-Dimer (<0.60) mg/L FEU Sodium (137-145) mmol/L Potassium (3.5-5.1) mmol/L Chloride (98-107) mmol/L Carbon Dioxide (22-30) mmol/L Anion Gap mmol/L BUN (9-20) mg/dL Creatinine (0.66-1.25) mg/dL Est GFR (CKD-EPI)AfAm (>60 ml/min/1.73 sqM) Est GFR (CKD-EPI)NonAf (>60 ml/min/1.73 sqM) Glucose (74-99) mg/dL POC Glucose (mg/dL) (75-99) mg/dL POC Glu [employer] ID Plasma Lactic Acid Terry (0.7-2.0) mmol/L Calcium (8.4-10.2) mg/dL Phosphorus (2.5-4.5) mg/dL Magnesium (1.6-2.3) mg/dL Total Bilirubin (0.2-1.3) mg/dL AST (17-59) U/L ALT (21-72) U/L Alkaline Phosphatase (38-126) U/L Creatine Kinase (55-170) U/L Troponin I 0.015 (0.000-0.034) ng/mL NT-Pro-B Natriuret Pep pg/mL Total Protein (6.3-8.2) g/dL Albumin (3.5-5.0) g/dL Disposition Clinical Impression: Near syncope, Hypoglycemia, Pacemaker, Dehydration Disposition: HOME SELF-CARE Condition: Good Instructions (If sedation given, give patient instructions): Near Syncope (ED) Is patient prescribed a controlled substance at d/c from ED?: No Referrals: James Herman DO [Primary Care Provider] - 1-2 days
[2019-07-25 20:38] LABS: Basophils # (A) 0.1 k/uL (0-0.2); Basophils % (A) 1 %; Eosinophils # (A) 0.4 k/uL (0-0.7); Eosinophils % (A) 5 %; HCT 41.9 % (39.0-53.0); HGB 14.2 gm/dL (13.0-17.5); Lymphocytes # (A) 1.1 k/uL (1.0-4.8); Lymphocytes % (A) 15 %; MCH 32.3 pg (25.0-35.0); MCV 94.8 fL (80.0-100.0); Mean Platelet Volume 8.9; Monocytes # (A) 0.4 k/uL (0-1.0); Monocytes % (A) 5 %; Neutrophils # (A) 5.3 k/uL (1.3-7.7); Neutrophils % (A) 72 %; Platelet Count 113 k/uL (150-450); RBC 4.42 m/uL (4.30-5.90); RDW 15.4 % (11.5-15.5); WBC 7.3 k/uL (3.8-10.6)
[2019-07-25 20:48] LABS: Calcium 8.8 mg/dL (8.4-10.2); Magnesium 2.2 mg/dL (1.6-2.3); Phosphorus 4.6 mg/dL (2.5-4.5); Potassium 4.3 mmol/L (3.5-5.1); Total Bilirubin 0.8 mg/dL (0.2-1.3); Total Protein 6.8 g/dL (6.3-8.2)
[2019-07-25 20:53] LABS: D-Dimer 0.55 mg/L FEU (<0.60); Partial Thromboplastin Time 25.8 sec (22.0-30.0); Prothrombin Time 10.9 sec (9.0-12.0)
[2019-07-25 21:21] VITALS: BP 127/79; PULSE 60; RESP 12
== END 2019-07-25 21:30 | disposition home or self-care (01) ==
LOC: EC 19:26
DX: E86.0 Dehydration (principal); E16.2 Hypoglycemia, unspecified; Z95.0 Presence of cardiac pacemaker; I25.10 Atherosclerotic heart disease of native coronary artery without angina pectoris; I10 Essential (primary) hypertension; I25.2 Old myocardial infarction; N40.0 Benign prostatic hyperplasia without lower urinary tract symptoms; Z88.2 Allergy status to sulfonamides; Z79.01 Long term (current) use of anticoagulants; Z79.899 Other long term (current) drug therapy; Z86.73 Personal history of transient ischemic attack (TIA), and cerebral infarction without residual deficits; Z96.651 Presence of right artificial knee joint; W01.0XXA Fall on same level from slipping, tripping and stumbling without subsequent striking against object, initial encounter; Y93.11 Activity, swimming
CPT/HCPCS: 36415; 80053; 82550; 83605; 83735; 83880; 84100; 84484; 85025; 85379; 85610; 85730; 93005; 96360; 99285